=== PATIENT | male | born 1940 | race Caucasian/White ===

== ENCOUNTER 2017-09-13 08:05 | Observation (INO) | payer OTHER ==
--- NOTE | 2017-09-12 22:05 | GHP ---
[f rep st] PREOP HISTORY AND PHYSICAL DATE OF ADMISSION: 09/13/2017 DATE OF SURGERY: 09/13/2017. CHIEF COMPLAINT: Right ankle pain. HISTORY OF PRESENT ILLNESS: The patient is a 77-year-old with an involved history relative to his ankle. He underwent arthrodesis 2 years ago. This was complicated by postoperative infection requiring irrigation and debridement and IV antibiotics. He is reportedly "clear" of infection, but is having persistent pain. PAST MEDICAL HISTORY: Positive COPD, hypercholesterol, rheumatoid arthritis. MEDICATIONS: Hydroxychloroquine, losartan, montelukast, and trazodone. ALLERGIES: He lists no drug allergies. SOCIAL HISTORY: Negative for tobacco use. FAMILY HISTORY: Noncontributory. PHYSICAL EXAMINATION: GENERAL: He is alert and oriented x3. No acute distress. HEENT: Head is normocephalic. Pupils equal, round, reactive to light. Extraocular eye movements intact. NECK: Supple. No JVD or lymphadenopathy. CHEST: Clear to auscultation. HEART: Regular rate, rhythm. ABDOMEN: Soft, nontender, nondistended. No organomegaly. GENITORECTAL AND BREASTS: Deferred. EXTREMITIES: Reveals diffuse swelling in his right ankle with some focal tenderness. He has some gross motion through his arthrodesis site. ASSESSMENT: Nonunion right ankle arthrodesis. PLAN: The patient is scheduled to undergo arthrotomy debridements, placement of spacer with specimens sent to Pathology for definitive evaluation. Potential total ankle arthroplasty would be pending the results of the initial operation. /[id number]/MODL MTDD
[2017-09-13] MEDS ORDERED: LR 1,000 ML IV ONE (08:59)
[2017-09-13] MEDS ORDERED: BUPIVACAINE 0.25% 30 ML SDV ONE (09:39)
--- NOTE | 2017-09-13 10:40 | PDANEPAE ---
ANE History of Present Illness here for R ankle surgery ANE Past Medical History - Cardiovascular History Hx Hypertension: Yes Hx Arrhythmias: No Hx Chest Pain: No Hx Coronary Artery / Peripheral Vascular Disease: Yes Hx CHF / Valvular Disease: No Hx Palpitations: No Cardiovascular History Comment: cad. stent 2002 - Pulmonary History Hx COPD: Yes Hx Asthma/Reactive Airway Disease: No Hx Recent Upper Respiratory Infection: No Hx Oxygen in Use at Home: Yes O2 in Use at Home (L/minute): 4l at noc with cpap Hx Sleep Apnea: Yes Sleep Apnea Screening Result - Last Documented: Positive Pulmonary History Comment: alayna positive uses cpap- instructed pt to bring cpap to hospital. hx of pna 2010 - Neurologic History Hx Cerebrovascular Accident: No Hx Seizures: No Hx Dementia: No Neurologic History Comment: restless leg syndrome - Endocrine History Hx Diabetes: No - Renal History Hx Renal Disorders: Yes Renal History Comment: bph. nocturia. hx of turp - Liver History Hx Hepatic Disorders: No - Neurological & Psychiatric Hx Hx Neurological and Psychiatric Disorders: No - Cancer History Hx Cancer: Yes Cancer History Comment: skin - Congenital Disorder History Hx Congenital Disorders: No - GI History Hx Gastrointestinal Disorders: Yes Gastrointestinal History Comment: gerd has been off medicines this past year- controlling with diet - Other Health History Other Health History: back pain. bilateral hearing aides. glasses. RA. red spots to right ankle - Chronic Pain History Chronic Pain: Yes (right ankle, back pain) - Surgical History Prior Surgeries: right ankle fusion x2 2016 with post MRSA infection. right TKA. bilateral cataracts. removal of cyst in left elbow. turp. t&a. right shoulder removal of cuff. removal of throat polyps ANE Review of Systems Review of systems is: negative Review of Systems: - Exercise capacity Exercise capacity: <4 METS METS (RN): 3 METS ANE Patient History - Allergies Allergies/Adverse Reactions: No Known Allergies Allergy (Verified 08/31/17 11:02) - Home Medications Home medications: home medication list seen and reviewed Home Medications: Aspirin Bid 08/31/17 [Last Taken 09/10/17] Atorvastatin At Hs 08/31/17 [Last Taken 09/10/17] Fluticasone Prn 08/31/17 [Last Taken 09/10/17] Gabapentin Bid 08/31/17 [Last Taken 09/10/17] Herbals/Supplements -Info Only 08/31/17 [Last Taken 09/10/17] Humira D2bawtp 08/31/17 [Last Taken 08/14/17] Losartan In Am 08/31/17 [Last Taken 09/10/17] Meloxicam At Hs 08/31/17 [Last Taken Unknown] Montelukast Sodium At Hs 08/31/17 [Last Taken 09/10/17] Nebulizer Prn 08/31/17 [Last Taken 09/13/17] Paroxetine In Am 08/31/17 [Last Taken 09/10/17] Proventil Prn 08/31/17 [Last Taken 09/13/17] Ropinirole At Hs 08/31/17 [Last Taken 09/10/17] Symbicort Bid 08/31/17 [Last Taken 09/06/17] Tamsulosin At Hs 08/31/17 [Last Taken 09/10/17] Trazadone At Hs 08/31/17 [Last Taken 09/12/17] - NPO status NPO Status: no food or drink >8 hours NPO Since - Liquids (Date): 09/12/17 NPO Since - Liquids (Time): 22:00 NPO Since - Solids (Date): 09/12/17 NPO Since - Solids (Time): 22:00 - Smoking Hx Smoking Status: Former smoker - Family Anes Hx Family Hx Anesthesia Complications: none ANE Labs/Vital Signs - Vital Signs Vital Signs: reviewed preoperatively; see RN documention for details Blood Pressure: 147/72 Heart Rate: 75 Respiratory Rate: 18 O2 Sat (%): 87 Height: 170.18 cm Weight: 98.43 kg ANE Physical Exam - Airway Neck exam: FROM Mallampati Score: Class 1 Mouth exam: normal dental/mouth exam - Pulmonary Pulmonary: no respiratory distress - Cardiovascular Cardiovascular: regular rate and rhythym - ASA Status ASA Status: III ANE Anesthesia Plan Anesthesia Plan: GA w LMA Regional Anesthesia: popliteal SNB
[2017-09-13] MEDS ORDERED: ROPIVACAINE HCL 150 MG/30 ML INJ ONE (10:43)
[2017-09-13] MEDS ORDERED: fentaNYL 100 MCG/2 ML INJ ONE ×2 (10:45→12:53)
[2017-09-13] MEDS ORDERED: PROPOFOL/EMULSION 500 MG/50 ML BOTTLE IV ONE (11:05)
[2017-09-13] MEDS ORDERED: DEXAMETHASONE 4 MG/ML VIAL IVP PRN (11:29)
[2017-09-13] MEDS ORDERED: HYDROmorphONE/DILAUDID 1 MG/ML INJ IVP PRN (11:29)
[2017-09-13] MEDS ORDERED: NS 500 ML IV PRN (11:29)
[2017-09-13] MEDS ORDERED: LR 500 ML IV PRN (11:29)
[2017-09-13] MEDS ORDERED: ONDANSETRON 4 MG/2 ML VIAL IVP PRN ×2 (11:29→13:49)
[2017-09-13] MEDS ORDERED: ALBUTEROL 3 ML DEYVIAL IH PRN (11:29)
[2017-09-13] MEDS ORDERED: NALOXONE HCL 0.4 MG/ML INJ IVP PRN (11:29)
[2017-09-13] MEDS ORDERED: PHENYLEPHRINE HCL 100 MCG/ML SYR ONE ×2 (11:56→12:42)
[2017-09-13] MEDS ORDERED: ceFAZolin 1 GM VIAL ONE ×2 (12:36)
[2017-09-13] MEDS ORDERED: PROMETHAZINE HCL 25 MG/ML INJ IVP PRN (13:49)
--- NOTE | 2017-09-13 13:49 | POSTOPPROG ---
Post Op Note Date of Operation: 09/13/17 Surgeon: Lisandro Pierre Anesthesia: GET(General Endotracheal) Pre-op Diagnosis: Non union R ankle arthrodesis, retained hardware Post-op Diagnosis: same Procedure: R ankle arthrotomy/debridement, HWR, Placement PMMA/Abx spacer, tib- stone-natacha Inf/Abcess present in the surg proc area at time of surgery?: No
[2017-09-13] MEDS ORDERED: D5W 1/2 NS W/ 20 KCl/L 1,000 ML IV SCH (14:00)
[2017-09-13] MEDS ORDERED: ALBUTEROL 60 PUFFS/8 GM MDI IH ONE (14:03)
[2017-09-13] MEDS ORDERED: ALBUTEROL 3 ML DEYVIAL ONE (14:04)
[2017-09-13] MEDS: oxyCODONE IR 5 MG TAB PO PRN ×2 (16:48→19:50)
[2017-09-13] MEDS: ceFAZolin 2 GM/DEXTROSE 100 ML IV SCH (22:30)
[2017-09-14] MEDS ORDERED: ALBUTEROL 3 ML DEYVIAL IH PRN (03:15)
[2017-09-14] MEDS: ceFAZolin 2 GM/DEXTROSE 100 ML IV SCH (05:12)
[2017-09-14] MEDS: oxyCODONE IR 5 MG TAB PO PRN ×2 (05:12→10:39)
--- NOTE | 2017-09-14 06:11 | SOAPPROG ---
SOAP Progress Note Assessment/Plan: Assessment: S/P R ankle I&D Pain tolerable (block working) Jodee po + U/O Dressing intact, no D/C Toes with good cap refill Plan: OOB D/C home today 09/14/17 06:09 Objective: Vital Signs Temp Pulse Resp BP Pulse Ox 36.6 C 74 15 151/67 H 94 09/14/17 03:54 09/14/17 04:02 09/14/17 04:02 09/14/17 03:54 09/14/17 04:02 Microbiology 09/13/17 12:40 Gram Stain - Final Other - Tissue 09/13/17 12:00 Gram Stain - Final Ankle - Tissue 09/13/17 12:00 Gram Stain - Final Ankle - Tissue 09/13/17 11:45 Gram Stain - Final Ankle - Eswab 09/13/17 11:45 Gram Stain - Final Ankle - Eswab 09/13/17 12:17 Gram Stain - Final Ankle - Tissue 09/13/17 11:45 Gram Stain - Final Leg - Tissue 09/13/17 11:45 Gram Stain - Final Ankle - Tissue 09/13/17 11:45 Mycobacterial Smear (SPENSER) - Final Ankle - Eswab Mycobacterial Culture - Final 09/13/17 11:45 Mycobacterial Smear (SPENSER) - Final Ankle - Eswab Mycobacterial Culture - Final 09/13/17 09/14/17 09/15/17 05:59 05:59 05:59 Intake Total 2650 Balance 2650 ICD10 Worksheet Patient Problems: Problems Problem Status Onset Arthritis of ankle, right Acute Arthritis of ankle, right Acute - ICD10 Problem Qualifiers (1) Arthritis of ankle, right (2) Arthritis of ankle, right
[2017-09-14] MEDS ORDERED: diphenhydrAMINE 25 MG CAP PO PRN (07:35)
[2017-09-14 08:20] VITALS: BP 120/57
--- NOTE | 2017-09-14 10:16 | ASMTLACE ---
LACE Length of stay for Answers: 1 day current admission Acuity / Level of Answers: No Care: Did the patient have an inpatient admission? Comorbidities - select Answers: Chronic pulmonary disease all that apply Coronary Artery Disease Other Notes: HTN; GERD # of Emergency department Answers: 0 visits in the last 6 months Score: 6 Date Signed: 09/14/2017 10:15 AM Electronically Signed By:CLAIR Sanchez
--- NOTE | 2017-09-14 16:53 | GOP ---
[f rep st] OPERATIVE REPORT DATE OF OPERATION: 09/13/2017 SURGEON: Lisandro Pierre MD ANESTHESIA: General, plus popliteal block performed by the anesthesiologist at my request for postop erative pain management. PREOPERATIVE DIAGNOSIS: 1. Nonunion right ankle arthrodesis. 2. Possible right ankle infection. 3. Retained hardware, right ankle. POSTOPERATIVE DIAGNOSIS: 1. Nonunion right ankle arthrodesis. 2. Possible right ankle infection. 3. Retained hardware, right ankle. PROCEDURE PERFORMED: 1. Right ankle arthrotomy and debridement, including subcutaneous tissue, ankle capsule, and bone. 2. Hardware removal, right ankle. 3. Insertion of poly methylmethacrylate spacer, right ankle. 4. Provisional tibial talocalcaneal stabilization. FINDINGS: ESTIMATED BLOOD LOSS: Minimal. INDICATIONS: Patient is a 77-year-old with involved history relative to his ankle. He underwent an attempted ankle arthrodesis, which was complicated by infection. He is having persistent pain. Clin ically and radiographically, he is noted to have a nonunion of his arthrodesis site. After a prolonged discussion with the patient regarding treatment options, he was very interested in pursuing a total ankle arthroplasty. He acknowledged the concern over persistent infection with this operation. It was not felt that a single stage total ankle would be a safe option, and that if this was to be considered as a potential treatment, staging this, a hardware removal and thorough debride ment with multiple cultures sent be an initial first step. If at that point in time, all signs of in fection were negative at a subsequent date at least 1 month later, patient could return for a total a nkle. If there were any signs of infection, ankle arthrodesis would be the only option. He acknowle dged he understood the potential risks of the operation, including, but not limited to bleeding, infe ction, neurovascular damage, loss of limb function, need for further surgery, and anesthetic risks. He gave consent for the operative procedure. DESCRIPTION OF PROCEDURE: The patient was brought to the operating room. IV antibiotics were not ad ministered. He was placed in a supine position where general anesthetic was administered. A tourniq uet was placed around his right calf, and his right lower leg was prepped and draped in standard ster ile fashion. After marking the incision and Darrius wrap exsanguination, tourniquet was inflated to 250. A portion of his previous anterior ankle incision was utilized for exposure. Skin and subcutaneous t issue were sharply incised. The extensor retinaculum was incised in line with the skin incision. Th e interval between the tibialis anterior and extensor hallucis longus was utilized for exposure. The ankle capsule was longitudinally incised. Samples of the ankle capsule were sent to microbiology fo r analysis. There were no overt signs of any infection. Attention was directed toward hardware removal. Under fluoroscopic guidance, the location of the med ial screw heads were identified. The previous medial incision was utilized for dissection down to th e medial aspect of the tibia. The screw heads were identified and the screws removed without difficu lty. The remaining screw was placed in a posterior to anterior direction. Finding this screw via po sterior approach would be very difficult. A bone wafer polisher was then placed in the tibiotalar joint ba sed on the nonunion, distraction was accomplished. A portion of the talar insertion of the screw was freed with a small rongeur and small chisel. Utilizing a needle rolloff truck driver and fine-tipped pliers, the screw was then "backed out" into the tibia and then pulled out through the ankle joint. All screws w ere sent to Microbiology to be swabbed for potential infection. The fibrous tissue within the joint was thoroughly debrided. Multiple specimens from the tibia and t alus, as well as the soft tissue within the joint were sent to Pathology and Microbiology. A poly me thylmethacrylate spacer with tobramycin was then placed in the tibiotalar joint. A fully threaded la rge caliber Schanz pins were then placed from the plantar aspect of the heel across the subtalar and ankle joints, with the ankle held in neutral position. Fluoroscopic views confirmed favorable pin pl acement. Attention was directed towards closure. The extensor retinaculum was closed with 2-0 Vicryl suture i n interrupted fashion, subcutaneous tissue closed with 3-0 Vicryl suture in interrupted fashion, and the skin closed with 3-0 nylon interrupted sutures. The wounds were dressed with sterile Adaptic, 4 x 4, Kerlix, and an Darrius wrap. He was placed in a fracture boot and taken to recovery room, extubated , in stable condition postoperatively. All sponge, needle, and instrument counts were reported as be ing correct. DRAINS: None. COMPLICATIONS: None. PLAN: The patient would be admitted for overnight observation. He will be allowed to be weightbeari ng on his operative extremity. Further surgery would be pending the results of his microbiology anal ysis. /[id number]/MODL
== END 2017-09-14 12:13 | disposition home or self-care (01) ==
LOC: FSGY 08:05 → F3N 13:47
PROVIDERS: ADMIT Orthopaedic Surgery Foot and Ankle Surgery; ATTEND Orthopaedic Surgery Foot and Ankle Surgery
PROC: 0QPG04Z Removal of Internal Fixation Device from Right Tibia, Open Approach (ICD-10-PCS; principal; 2017-09-13 10:45)
PROC: 0SBF0ZX Excision of Right Ankle Joint, Open Approach, Diagnostic (ICD-10-PCS; principal; 2017-09-13 10:45)
PROC: 0SHF08Z Insertion of Spacer into Right Ankle Joint, Open Approach (ICD-10-PCS; principal; 2017-09-13 10:45)
DX: M96.0 Pseudarthrosis after fusion or arthrodesis (principal)
CPT/HCPCS: 20680; 27620; 73700; 97161; C1713; G8978; G8979; G8980; J0690; J2370; J2704; J2795; J3010; J7613

== ENCOUNTER 2017-10-10 17:00 | Inpatient (IN) | payer OTHER ==
[2017-10-10] MEDS ORDERED: POLYMYXIN B SULFATE 500,000 UNIT/10 ML SYR IRR ONE (19:59)
--- NOTE | 2017-10-10 20:12 | PDHPUP ---
History & Physical Update H&P update statement: This history and physical update is based on an assessment of the patient which was completed after admission or registration (within 24 hours), but prior to the surgery/procedure. H&P update: H&P reviewed & patient examined, no change in patient's condition since H&P completed H&P changes: Patient recently developed redness and swelling in his right lower leg with drainage from the medial wound. P/E - Redness along the medial aspect of his right ankle. No D/C. Imp - recurrent R ankle infection. Plan I&D R Ankle. Removal/replacement PMMA spacer
[2017-10-10] MEDS ORDERED: LR 1,000 ML IV ONE (20:14)
[2017-10-10] MEDS ORDERED: fentaNYL 100 MCG/2 ML INJ ONE ×2 (20:28→21:46)
[2017-10-10] MEDS ORDERED: PROPOFOL 200 MG/20 ML VIAL ONE (20:29)
[2017-10-10] MEDS ORDERED: ceFAZolin 1 GM VIAL ONE ×2 (20:30)
[2017-10-10] MEDS ORDERED: RANITIDINE 50 MG/2 ML VIAL ONE (20:30)
--- NOTE | 2017-10-10 20:30 | PDANEPAE ---
ANE Past Medical History - Cardiovascular History Hx Hypertension: Yes Hx Arrhythmias: No Hx Chest Pain: No Hx Coronary Artery / Peripheral Vascular Disease: Yes Hx CHF / Valvular Disease: No Hx Palpitations: No Cardiovascular History Comment: cad. stent 2002 - Pulmonary History Hx COPD: Yes Hx Asthma/Reactive Airway Disease: No Hx Recent Upper Respiratory Infection: No Hx Oxygen in Use at Home: Yes Hx Sleep Apnea: Yes Pulmonary History Comment: alayna positive uses cpap- instructed pt to bring cpap to hospital. hx of pna 2010 - Neurologic History Hx Cerebrovascular Accident: No Hx Seizures: No Hx Dementia: No Neurologic History Comment: restless leg syndrome - Endocrine History Hx Diabetes: No Hypothyroid: No Hyperthyroid: No Obesity: yes, mild - Renal History Hx Renal Disorders: Yes Renal History Comment: bph. nocturia. hx of turp - Liver History Hx Hepatic Disorders: No - Neurological & Psychiatric Hx Hx Neurological and Psychiatric Disorders: No - Cancer History Hx Cancer: Yes Cancer History Comment: skin - Congenital Disorder History Hx Congenital Disorders: No - GI History GERD: mild Hx Gastrointestinal Disorders: Yes Gastrointestinal History Comment: gerd has been off medicines this past year- controlling with diet - Other Health History Other Health History: back pain. bilateral hearing aides. glasses. RA. red spots to right ankle - Chronic Pain History Chronic Pain: Yes (right ankle, back pain) - Surgical History Prior Surgeries: right ankle fusion x2 2016 with post MRSA infection. right TKA. bilateral cataracts. removal of cyst in left elbow. turp. t&a. right shoulder removal of cuff. removal of throat polyps ANE Review of Systems Review of Systems: - Exercise capacity METS (RN): 4 METS ANE Patient History - Allergies Allergies/Adverse Reactions: No Known Allergies Allergy (Verified 08/31/17 11:02) - Home Medications Home Medications: Adalimumab [Humira] 40 mg SC Q14D 09/13/17 [Last Taken 10/10/17] Albuterol [Proventil Inhaler HFA (*)] 1 - 2 puffs IH Q4H PRN 09/13/17 [Last Taken 10/10/17] Albuterol [Proventil Neb] 3 ml IH QID PRN 09/13/17 [Last Taken 10/10/17] Aspirin [Aspirin 81mg (*)] 81 mg PO BID 09/13/17 [Last Taken 10/10/17 81 mg] Atorvastatin Calcium [Lipitor 20 mg (*)] 10 mg PO DAILY 09/13/17 [Last Taken 20] Budesonide/Formoterol 160/4.5 [Symbicort 160-4.5 Mcg Inh (*)] 2 puffs IH BID [Last Taken 10/10/17] Fluticasone Nasal [Flonase Nasal [place]] 1 sprays NASAL BID PRN 09/13/17 [Last Taken 10/10/17 120] Gabapentin [Neurontin] 1,200 mg PO BID 09/13/17 [Last Taken 10/10/17 600] Losartan Potassium 100 mg PO DAILY 09/13/17 [Last Taken 10/10/17 100 mg] Meloxicam 15 mg PO HS 09/13/17 [Last Taken 10/10/17] Montelukast Sodium [Singulair 10 mg (*)] 10 mg PO HS 09/13/17 [Last Taken 10] PARoxetine HCL [Paxil 20mg (*)] 10 mg PO DAILY 09/13/17 [Last Taken 10/10/17 10] rOPINIRole HCL [Ropinirole HCl] 0.5 mg PO HS 09/13/17 [Last Taken 10/10/17 0.5] traZODone [traZODONE 100MG (*)] 100 mg PO HS 09/13/17 [Last Taken 10/09/17 100] - NPO status NPO Since - Liquids (Date): 10/10/17 NPO Since - Liquids (Time): 10:30 NPO Since - Solids (Date): 10/10/17 NPO Since - Solids (Time): 10:30 - Anes Hx Anes Hx: no prior problems - Smoking Hx Smoking Status: Former smoker Marijuana use: No - Alcohol Use Alcohol Use: Sober - Family Anes Hx Family Anes Hx: neg - N/A Family Hx Anesthesia Complications: none ANE Labs/Vital Signs - Vital Signs Blood Pressure: 136/62 Heart Rate: 80 Respiratory Rate: 18 O2 Sat (%): 92 Height: 170.18 cm Weight: 95.254 kg ANE Physical Exam - Airway Neck exam: decreased ROM Mallampati Score: Class 3 Mouth exam: dentures - Pulmonary Pulmonary: no respiratory distress, no rales or rhonchi, reduced air movement - Cardiovascular Cardiovascular: regular rate and rhythym, no murmur, rub, or gallop ANE Anesthesia Plan Anesthesia Plan: GA w LMA Total IV Anesthesia: No
[2017-10-10] MEDS ORDERED: LIDOCAINE 2% 5 ML SDV ONE (20:31)
[2017-10-10] MEDS ORDERED: PHENYLEPHRINE HCL 100 MCG/ML SYR ONE ×2 (20:46→21:13)
[2017-10-10] MEDS ORDERED: DEXAMETHASONE 4 MG/ML VIAL ONE (20:49)
[2017-10-10] MEDS ORDERED: oxyCODONE IR 5 MG TAB PO PRN (21:01)
[2017-10-10] MEDS ORDERED: LR 500 ML IV PRN (21:01)
[2017-10-10] MEDS ORDERED: PHENYLEPHRINE HCL 100 MCG/ML SYR IVP PRN (21:01)
[2017-10-10] MEDS ORDERED: NALOXONE HCL 0.4 MG/ML INJ IVP PRN ×2 (21:01→22:53)
[2017-10-10] MEDS ORDERED: fentaNYL 100 MCG/2 ML INJ IVP PRN (21:01)
[2017-10-10] MEDS ORDERED: ACETAMINOPHEN 500 MG TAB PO PRN (21:01)
[2017-10-10] MEDS ORDERED: HYDROCODONE/APAP 5/325 TAB PO PRN (21:01)
[2017-10-10] MEDS ORDERED: ONDANSETRON 4 MG/2 ML VIAL IVP PRN ×2 (21:01→22:46)
[2017-10-10] MEDS ORDERED: ALBUTEROL 3 ML DEYVIAL IH PRN (21:01)
[2017-10-10] MEDS: BUPIVACAINE 0.25% 30 ML SDV ONE (21:35)
[2017-10-10] MEDS ORDERED: KETOROLAC 30 MG/1 ML SDV ONE (22:04)
[2017-10-10] MEDS ORDERED: PROMETHAZINE HCL 25 MG/ML INJ IVP PRN (22:46)
[2017-10-10] MEDS ORDERED: TEMAZEPAM 15 MG CAP PO PRN (22:46)
--- NOTE | 2017-10-10 22:46 | POSTOPPROG ---
Post Op Note Date of Operation: 10/10/17 Surgeon: Lisandro Pierre Anesthesia: LMA Pre-op Diagnosis: R ankle infection, retained hardware Post-op Diagnosis: same Procedure: R ankle I&D, HWR, removal PMMA spacer, TTC fixation, insertion PMMA spacer Inf/Abcess present in the surg proc area at time of surgery?: Yes Depth: Deep Incisional (Fascial) EBL: Minimal Drains: Jorge Baldwin
--- NOTE | 2017-10-10 22:50 | POSTANESTH ---
Post Anesthetic Evaluation Cardiovascular Status: Normal, Stable Respiratory Status: Normal, Stable Level of Consciousness/Mental Status: Mildly Sleepy, Arousable Pain Control: Adequate, Prn Tx Ordered Nausea/Vomiting Control: Adequate, Prn Tx Ordered Complications Possibly Related to Anesthesia: None Noted
[2017-10-10] MEDS ORDERED: morphINE PCA 30 MG/30 ML PCA IV PRN (22:53)
[2017-10-10] MEDS ORDERED: D5W 1/2 NS W/ 20 KCl/L 1,000 ML IV SCH (23:00)
--- NOTE | 2017-10-10 23:35 | GOP ---
[f rep st] OPERATIVE REPORT DATE OF OPERATION: 10/10/2017 SURGEON: Lisandro Pierre MD ANESTHESIA: General. PREOPERATIVE DIAGNOSIS: 1. Right ankle infection. 2. Retained implants, right ankle. POSTOPERATIVE DIAGNOSIS: 1. Right ankle infection. 2. Retained implants, right ankle. PROCEDURE PERFORMED: 1. Right ankle irrigation and debridement, including skin, subcutaneous tissue, and bone. 2. Removal of Steinmann pins and poly methylmethacrylate, right ankle. 3. Tibiotalar calcaneal fixation. 4. Insertion of poly methylmethacrylate/antibiotic spacer. FINDINGS: SPECIMENS: Two cultures sent to Microbiology for evaluation. ESTIMATED BLOOD LOSS: Minimal.resolution DESCRIPTION OF PROCEDURE: Patient was brought to the operating room after IV antibiotics were admini stered. He was placed in a supine position where general anesthetic was administered. A tourniquet was placed on his right calf, and his right lower leg was prepped and draped in standard sterile fash ion. After Darrius wrap exsanguination, tourniquet was inflated to 250. Stab incisions were made over t he Steinmann pins to the plantar aspect of his heel. Dissection was carried down to the pins. Using a needle mechanic welder truck driver, the pins were backed up and then subsequently removed for the drill. The medial in cision which had the opening and draining was open. No drainage was seen. The previous screw hole w as directly underneath this area. The wound was copiously irrigated and curetted. The anterior ankl e incision was opened. Skin and subcutaneous tissue were sharply incised. Sharp dissection was pavon ied in the interval between the tibialis anterior and extensor hallucis longus, taking care to avoid damage to neurovascular bundle. No evidence of purulence was seen or nonviable tissue. The capsule was reflected medially and laterally. The poly methylmethacrylate spacer was removed. Tissue was cu retted. Cultures were obtained both medially and anteriorly. The anterior wound was then copiously irrigated utilizing cystoscopy tubing gravity flow. A poly methylmethacrylate/tobramycin spacer was then placed in the ankle, both to control space as well as for deliverance of antibiotic to the tissue. Two large caliber threads lined with pins were then placed through stab incisions of the [facility] across the calcaneus, talus, and ankle. Fluoroscopic views confirmed favorable placement. Attention was directed towards closure. The subcutaneous tissue was closed with 3-0 Vicryl suture in interrupted fashion. The skin was closed with 3-0 nylon interrupted sutures using a "spider stitch. " Prior to closure, a 10-Surinamese drain was placed. The wounds were dressed with sterile Adaptic, 4 x 4, and Kerlix. Patient was taken to the recovery room and extubated in stable condition postoperati vely. All sponge, needle, and instrument counts were reported as being correct. DRAINS: 10-[place]inamese Jorge-Baldwin. COMPLICATIONS: None. PLAN: Patient will be admitted for medical and antibiotic management. /[id number]/MODL
[2017-10-11] MEDS ORDERED: ceFAZolin 2 GM/DEXTROSE 100 ML IV SCH (06:00)
--- NOTE | 2017-10-11 06:44 | PDMN ---
Medical Necessity Medical necessity: [facility] IP only surgery; cpt 91988 R ankle arthroplasty w/I&D
[2017-10-11] MEDS ORDERED: ALBUTEROL 60 PUFFS/8 GM MDI IH PRN (09:35)
[2017-10-11] MEDS ORDERED: IPRATROPIUM/ALBUTEROL 3 ML DEYVIAL IH PRN (09:35)
[2017-10-11] MEDS ORDERED: SENNOSIDES/DOCUSATE SODIUM TAB PO PRN (09:35)
[2017-10-11] MEDS ORDERED: PARoxetine HCL 20 MG TAB PO SCH (09:45)
[2017-10-11 10:56] LABS: PLATELET COUNT 255 10^3/uL (150-400)
[2017-10-11] MEDS: ENOXAPARIN 40 MG/0.4 ML SYR SC SCH (11:22)
[2017-10-11] MEDS: VANCOMYCIN HCL/NORMAL SALINE 250 ML IV SCH ×2 (11:22→22:57)
[2017-10-11] MEDS: LOSARTAN POTASSIUM 50 MG TAB PO SCH (11:22)
[2017-10-11] MEDS: oxyCODONE IR 5 MG TAB PO PRN ×3 (12:15→20:55)
[2017-10-11] MEDS: PARoxetine HCL 10 MG TAB PO SCH (13:47)
[2017-10-11] MEDS: BUDESONIDE/FORMOTEROL 160/4.5 60 PUFFS/MDI IH SCH ×2 (14:01→20:50)
--- NOTE | 2017-10-11 15:02 | SOAPPROG ---
SOAP Progress Note Assessment/Plan: Assessment: R Ankle infection S/P I&D R ankle No pain Jodee diet + U/o RLE Dressing intact, No D/C Drain intact Toes with good cap refill Plan: Appreciate ID and IM input IV abx per ID 10/11/17 15:00 Objective: Vital Signs Temp Pulse Resp BP Pulse Ox 36.4 C 83 17 132/61 H 93 10/11/17 11:24 10/11/17 14:52 10/11/17 14:52 10/11/17 14:52 10/11/17 14:52 Microbiology 10/10/17 20:50 Gram Stain - Final Ankle - Eswab 10/10/17 20:50 Gram Stain - Final Ankle - Eswab Laboratory Results 10/11/17 09:30 10/11/17 08:57 10/10/17 10/11/17 10/12/17 05:59 05:59 05:59 Intake Total 1100 1017 Output Total 25 425 Balance 1073 592 ICD10 Worksheet Patient Problems: Problems Problem Status Onset Arthritis of ankle, right Acute Arthritis of ankle, right Acute MDRO (multiple drug resistant organisms) resistance Acute
--- NOTE | 2017-10-11 15:12 | ASMTCASEMG ---
Living Arrangements What is your living Answers: With Spouse arrangement? Who do you live with? Type Of Residence What kind of residence do Answers: House you live in? Discharge Plan Comments Coordination Status Comments Notes: Pt is a 77 y/o man admitted for swelling in his right lower leg w/ drainage from a medial wound. ID has been consulted. Pt is being followed by transitional care. Needs are TBD at this time. CM to follow. Plan: TBD Date Signed: 10/11/2017 03:12 PM Electronically Signed By:CLAIR Sanchez
--- NOTE | 2017-10-11 15:35 | GCON ---
[f rep st] CONSULTATION REFERRING PHYSICIAN: Lisandro Pierre MD REASON FOR CONSULTATION: Medical management. HISTORY OF PRESENT ILLNESS: The patient is a 77-year-old gentleman who was admitted by Dr. Pierre for a right ankle infection requiring irrigation and debridement. He also had removal of pins and a calcaneal fixation. He has tolerated the procedure well. He had hardware surgery approximately [address] Pierre. This was done in the [place] area. He started noticing that he was having increased redness and swelling, and was not in significant pain. The patient has had multiple surgeries to his right ankle area. He was originally seen at the [facility] on 10/09/2017, with worsening right ankle redness. Subsequently, was transferred to [facility] for further surgery. He has a significant past medical history of coronary artery disease, right knee replacements, and COPD with chronic hypoxemic respiratory failure. During my evaluation, he is not having any pain and appears to be quite comfortable. PAST MEDICAL HISTORY: 1. Rheumatoid arthritis. He usually gets Humira. His last dose was on July. He is followed by Dr. Araujo. 2. Coronary artery disease, status post stent placement in 2006. 3. COPD with chronic hypoxemic respiratory failure. He is on 2 L of oxygen at baseline. 4. Hard of hearing. Wears hearing aids. 5. Obstructive sleep apnea. Uses CPAP. 6. Asthma. 7. Gastroesophageal reflux disease. 8. Restless legs syndrome. 9. Hypertension. PAST SURGICAL HISTORY: 1. Right knee replacement and multiple ankle surgeries. 2. TURP. SOCIAL HISTORY: The patient lives at home with his . He has been for 57 years. He has 3 sons. He has a history of smoking. He quit 28 years ago. He said he started smoking at age 14 and smoked up to 3 packs a day. He quit drinking 22 years ago. At that time, he was an alcoholic. He quit drinking because it was ruining his marriage and his work life. 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 FAMILY HISTORY :Noncontributory. ALLERGIES: No allergies. HOME MEDICATIONS: Include Flomax 0.5 mg daily, multivitamin 1 tablet daily, magnesium oxide 400 mg p.o. q.h.s., DuoNeb 3 cc q.i.d. p.r.n., vitamin D 1000 units p.o. b.i.d., calcium carbonate 500 mg p.o. b.i.d., ropinirole 0.5 mg p.o. q.h.s., senna 1 tablet b.i.d. p.r.n., Coats 1 tablet q.4 hours p.r.n., gabapentin 1200 mg p.o. b.i.d., aspirin 81 mg b.i.d., Flonase 1 spray b.i.d., Symbicort 2 puffs b.i.d., Lipitor 10 mg p.o. q.h.s., albuterol inhaler 2-3 puffs t.i.d. p.r.n., meloxicam 7.5 mg daily, losartan 100 mg daily, trazodone 100 mg daily, Paxil 10 mg daily, and Singulair 10 mg daily. REVIEW OF SYSTEMS: A 10-point review of system was performed and it was negative other than pertinent positives in HPI and past medical history. PHYSICAL EXAMINATION: GENERAL: The patient is a 77-year-old male who appears to be in fair health. VITAL SIGNS: Blood pressure is 146/73, pulse 76, respiratory rate is 16, O2 saturation on 3 L are 94%, temperature is 36.5 Celsius. HEENT: Eyes: Pupils are equal, reactive. ENT: Normal ears. He is extremely hard of hearing. NECK: Trachea is midline. CARDIOVASCULAR: He is in a regular rate and rhythm. No murmurs, rubs, or gallops noted. He has 2+ left pedal pulses. Did not feel his right pulse due to being in a cast. CHEST : Lungs normal respiratory effort. Clear without wheezing, rales. Diminished bibasilar. ABDOMEN: Soft, nontender, round, and large. SKIN: No rashes, ulcers. MUSCULOSKELETAL: He moves his upper extremities with equal strength. I did not evaluate him ambulating. PSYCHIATRIC: He is alert, oriented, but he appears to have some memory loss, and at times had quite a bit of difficulty remembering and answering my questions. LABORATORY DATA: Data reviewed. CBC shows a white blood cell count 7.4, hemoglobin is 13.2, hematocrit 39.9, platelet count of 255. Chemistry: Sodium is 136, potassium 4.7, chloride of 100, CO2 of 24, BUN of 22, creatinine 0.9, glucose of 147. I reviewed the plan of care with Dr Foreman with the Infectious disease team. ASSESSMENT/PLAN: 1. Right ankle cellulitis, status post right ankle irrigation and debridement with hardware removal and fixation. He appears to be feeling quite comfortable. He has a history of methicillin-resistant Staphylococcus aureus. He will be on vancomycin. Dr. Foreman is here to see him. 2. Coronary artery disease. Will resume his aspirin when okay with surgery. He is on an ARB. He has no chest pain during my evaluation. 3. Chronic obstructive pulmonary disease with chronic hypoxemic respiratory failure. Will resume his inhalers. 4. Restless legs syndrome. Resume his home medication. 5. History of transurethral resection of the prostate in the past. Will resume his Flomax. 6. Deep venous thrombosis prophylaxis. High risk. Will place him on Lovenox. 7. Length of stay. He will require greater than a 2-midnight stay for further evaluation and monitoring. Thank you for this consultation. The hospitalist team will continue to follow the patient during his stay. /[id number]/MODL MTDD
[2017-10-11] MEDS: BUPIVACAINE 0.25% 30 ML SDV ONE (15:46)
--- NOTE | 2017-10-11 16:05 | GCON ---
[f rep st] CONSULTATION DATE OF CONSULTATION: 10/11/2017 PHYSICIAN REQUESTING CONSULTATION: Lisandro Pierre MD. REASON FOR CONSULTATION: Right ankle infection. HISTORY OF PRESENT ILLNESS: This is a 77-year-old male on with rheumatoid arthritis on chronic Humira last mid July 2017, who has had a complicated history related to his left ankle, which included arthrodesis approximately 2 years ago for which he received IV antibiotics from approximately September to January 2016. This was followed by oral amoxicillin suppression which was discontinued after bone biopsies were negative and subsequently Humira was resumed. Due to chronic ankle pain, the patient was seen by Dr. Pierre for evaluation for complete ankle replacement. First, due to presence of nonunion, 2-step procedure was planned, and patient underwent removal of hardware on 09/13, with path showing metallic screws fibro cartilaginous tissue, but no acute inflammation. Multiple cultures were obtained, which were all negative except for 1 specimen characterized as right ankle joint that grew rare Staphylococcus epidermidis. Cultures were held for 14 days. Approximately , the patient developed ankle drainage and presented to [facility] 2 days later, where wound cultures were obtained and subsequently grew PRELIMINARY: SA with concern for MRSA. The patient was transferred to [facility] for further debridement, which occurred on 10/10/2017, with exchange of hardware. Cultures from the OR Gram stain are negative, and cultures are pending. The patient denies any pain associated with his ankle today. No fevers, chills, night sweats. PAST MEDICAL HISTORY: 1. Rheumatoid arthritis on chronic Humira, but this has been held since July. 2. Coronary artery disease status post stent placement. 3. History of right knee replacement. 4. BPH with TURP. 5. COPD, but quit tobacco over 20 years ago. 6. Obstructive sleep apnea, CPAP and supplemental oxygen at night. 7. Gastroesophageal reflux disease. 8. Restless leg syndrome. 9. Hypertension. 10. Insomnia. 11. Streptococcal infection right ankle in 2016 as per HPI following left ankle arthrodesis. ALLERGIES: NO KNOWN DRUG ALLERGIES. SOCIAL HISTORY: He lives with his . He has 3 sons, 1 is incarcerated. 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 Tobacco use, quit 20 years ago. He has been to his 57 years. FAMILY HISTORY: Coronary artery disease with his father dying at age 56 of coronary artery disease. Mother of old age. Brother at 35, [place]. No history of immunologic deficiencies. REVIEW OF SYSTEMS: A complete 10-point review of systems was performed and is negative except as mentioned in the HPI. PHYSICAL EXAM: BP 132/61, HR 83, RR 17, saturation 93% on 3 L. He has been afebrile throughout his hospital course. T-max is 36.8. GENERAL: This is a pleasant, cheerful, conversational male in no acute distress. HEENT: No conjunctival hemorrhage. No jaundice. NECK: Was supple. CARDIOVASCULAR: Regular rate no murmurs. CHEST: Clear to auscultation bilaterally with decreased breath sounds throughout and a barrel shaped chest. ABDOMEN: Obese, soft, nontender. No masses were palpated. Liver and spleen were nonpalpable. EXTREMITIES: Dressing was in place of the right lower extremity postoperatively with a HAYDEE drain with minimal fluid in the drain. NEUROLOGICAL: The patient had a difficult time with referencing his past medical history. SKIN: No rashes. LABORATORY: White count 7.4, hematocrit 39, platelets 255, 80% neutrophils, 11 % lymphocytes. Creatinine 0.9. CRP less than 5. Creatinine clearance is in the 70s. Imaging: None available to me. ASSESSMENT AND PLAN: This is a 77-year-old male who was undergoing a two-step process for a left ankle replacement. Course complicated by cellulitis of the ankle, query existing infection at time of surgery, which was somehow missed by initial sampling. Interestingly, past infection was group B strep. Current preliminary data reports MRSA at the outside hospital. 1. Obtain micro results from outside hospital, but in the meantime, would start vancomycin 1 g IV q.12 based on weight of 95 kg and creatinine clearance. 2. Monitor vancomycin levels and creatinine closely. The patient may need daptomycin as an outpatient for transfer back to [place] and ongoing IV antibiotic therapy. In the records Dr. Bernabe was referenced [phone] for ongoing antibiotic therapy at time of transfer. At this point, we will await additional micro data before transfer back. This was discussed. 3. Contact precautions until more info Time was 90 minutes. Greater than 50% of time spent education and counseling of the patient, his , and review of outside records, as well as coordination of care with Bhavani Parsons and Dr. Pierre. /[id number]/MODL MTDD
[2017-10-11] MEDS: ATORVASTATIN CALCIUM 20 MG TAB PO SCH (20:48)
[2017-10-11] MEDS: MONTELUKAST SODIUM 10 MG TAB PO SCH (20:53)
[2017-10-11] MEDS: CALCIUM CARBONATE 500 MG TAB PO SCH (20:53)
[2017-10-11] MEDS: MAGNESIUM OXIDE 400 MG TAB PO SCH (20:53)
[2017-10-11] MEDS: CHOLECALCIFEROL VIT D3 1,000 UNITS TAB PO SCH (20:53)
[2017-10-11] MEDS: GABAPENTIN 400 MG CAP PO SCH (20:53)
[2017-10-11] MEDS: traZODone 100 MG TAB PO SCH (20:55)
[2017-10-11] MEDS: FLUTICASONE NASAL 120 SPRAYS/16 GM MDI NS PRN (20:57)
--- NOTE | 2017-10-12 06:16 | SOAPPROG ---
SOAP Progress Note Assessment/Plan: Assessment: R Ankle infection S/P I&D R ankle No pain Jodee diet + U/o RLE Dressing intact, No D/C Drain intact Toes with good cap refill Plan: Appreciate ID and IM input IV abx per ID 10/11/17 15:00 10/12/17 06:14 Minimal pain Jodee po Drain D/Guillermo Moderate drainage (sang) on dressing. Dressing changed Erythema resolved IV abx and D/C timing per ID Objective: Vital Signs Temp Pulse Resp BP Pulse Ox 36.9 C 70 18 141/95 H 97 10/12/17 04:00 10/12/17 04:00 10/12/17 04:00 10/12/17 04:00 10/12/17 04:00 Microbiology 10/10/17 20:50 Gram Stain - Final Ankle - Eswab 10/10/17 20:50 Gram Stain - Final Ankle - Eswab Laboratory Results 10/11/17 09:30 10/11/17 08:57 10/11/17 10/12/17 10/13/17 05:59 05:59 05:59 Intake Total 1100 1217 Output Total 94 2506 Balance 1075 -1059 ICD10 Worksheet Patient Problems: Problems Problem Status Onset Arthritis of ankle, right Acute Arthritis of ankle, right Acute MDRO (multiple drug resistant organisms) resistance Acute
[2017-10-12] MEDS: TAMSULOSIN HCL 0.4 MG CAP PO SCH (08:03)
[2017-10-12] MEDS: ENOXAPARIN 40 MG/0.4 ML SYR SC SCH (08:03)
[2017-10-12] MEDS: LOSARTAN POTASSIUM 50 MG TAB PO SCH (08:03)
[2017-10-12] MEDS: PARoxetine HCL 10 MG TAB PO SCH (08:03)
[2017-10-12] MEDS: CALCIUM CARBONATE 500 MG TAB PO SCH ×2 (08:04→20:26)
[2017-10-12] MEDS: GABAPENTIN 400 MG CAP PO SCH ×2 (08:04→20:27)
[2017-10-12] MEDS: CHOLECALCIFEROL VIT D3 1,000 UNITS TAB PO SCH ×2 (08:04→20:26)
[2017-10-12] MEDS: OXYCODONE/APAP 5/325 TAB PO PRN ×3 (08:04→20:28)
--- NOTE | 2017-10-12 10:37 | HOSPPROG ---
Hospitalist Progress Note Assessment/Plan: * Right ankle infection s/p I&D and hardware removal -MRSA - IV Vanco * RA -Humira on hold * COPD - 2L baseline - but sounds like only wears it intermittently -Symbicort * JOHN -CPAP intolerant * Obesity BMI 32 * CAD/stent -restart ASA when okay with surgery Subjective: No complaints. Objective: Vital Signs Temp Pulse Resp BP Pulse Ox 37.1 C 65 16 141/95 H 95 10/12/17 08:00 10/12/17 08:00 10/12/17 08:00 10/12/17 08:03 10/12/17 08:00 Microbiology 10/10/17 20:50 Gram Stain - Final Ankle - Eswab 10/10/17 20:50 Gram Stain - Final Ankle - Eswab Laboratory Results 10/11/17 09:30 10/11/17 08:57 10/11/17 10/12/17 10/13/17 05:59 05:59 05:59 Intake Total 1100 1217 Output Total 25 9677 540 Balance 1075 -1058 -540 Old chart reviewed regarding hospital course - Physical Exam Constitutional: no apparent distress, appears nourished, not in pain Cardiovascular: regular rate and rhythym, no murmur, rub, or gallop Respiratory: no respiratory distress, no rales or rhonchi, clear to auscultation Gastrointestinal: normoactive bowel sounds, soft, non-tender abdomen, no palpable masses Skin: no rashes or abrasions, no fluctuance, no induration Neurologic: AAOx3, sensation intact bilaterally Psychiatric: interacting appropriately, not anxious, not encephalopathic, thought process linear ICD10 Worksheet Patient Problems: Problems Problem Status Onset Arthritis of ankle, right Acute Arthritis of ankle, right Acute MDRO (multiple drug resistant organisms) resistance Acute
[2017-10-12] MEDS: BUDESONIDE/FORMOTEROL 160/4.5 60 PUFFS/MDI IH SCH ×2 (11:49→20:23)
[2017-10-12] MEDS: VANCOMYCIN HCL/NORMAL SALINE 250 ML IV SCH (12:28)
--- NOTE | 2017-10-12 16:51 | ASMTCMCOM ---
CM Note CM Note Notes: Pt may need IV antibiotics at d/c, reports he has had IV antibiotics at home in [place], [place] he could not remember infusion company name and will ask his . Pt home address is [address] [place] [address]. Pt PCP is Jenae Saini at [facility] [phone]. CM will follow. Date Signed: 10/12/2017 04:50 PM Electronically Signed By:SUSAN Rodriguez
--- NOTE | 2017-10-12 17:58 | PCMIDPN ---
Assessment/Plan: Assessment/Plan: * Postoperative right ankle infection status post debridement and removal of pin /spacer with tibiotalar calcaneal fixation and reimplantation of spacer: Cultures now showing growth of Staphylococcus aureus and group B Streptococcus ( group B Streptococcus was isolated with prior infection). Cultures from outside facility reported to show growth of MRSA. Given presence of growth on operative specimens, will need treatment with 6 weeks of IV antibiotic therapy. If patient is going to return to [place], may need to consider transition to daptomycin for ease of administration. Will obtain repeat basic metabolic profile today on vancomycin and vancomycin level before dose tomorrow a.m.. Clinical findings and plan discussed with patient this afternoon. 10/12/17 17:54 Subjective: Patient without specific complaints other than mild ankle discomfort. Objective: Vital Signs Temp Pulse Resp BP Pulse Ox 36.4 C 65 15 115/59 L 98 10/12/17 16:00 10/12/17 16:00 10/12/17 16:00 10/12/17 16:00 10/12/17 16:00 Microbiology 10/10/17 20:50 Gram Stain - Final Ankle - Eswab 10/10/17 20:50 Gram Stain - Final Ankle - Eswab Laboratory Results 10/11/17 09:30 10/11/17 08:57 10/11/17 10/12/17 10/13/17 05:59 05:59 05:59 Intake Total 1100 1217 1270 Output Total 25 2275 990 Balance 1075 -1058 280 Vancomycin # 2 Operative cultures with growth of Staphylococcus aureus and group B Streptococcus - Physical Exam General Appearance: alert, no apparent distress EENT: No scleral icterus, No conjunctival petechiae Respiratory: lungs clear, No respiratory distress Cardiac/Chest: regular rate, rhythm, systolic murmur (2/6 left upper sternal border) Extremities: inflammation (Right foot dressed postoperatively; 2+ lower extremity edema present) Abdomen: non-tender, No distended Skin: No embolic lesions - Time Spent With Patient Time Spent with Patient: greater than 25 minutes Time Spent with Patient: Greater than 25 minutes spent on this patients care, greater than 50% of time spent counseling, educating, and coordinating care regarding the above mentioned plan. ICD10 Worksheet Patient Problems: Problems Problem Status Onset Arthritis of ankle, right Acute Arthritis of ankle, right Acute MDRO (multiple drug resistant organisms) resistance Acute
[2017-10-12] MEDS: ATORVASTATIN CALCIUM 20 MG TAB PO SCH (20:20)
[2017-10-12] MEDS: FLUTICASONE NASAL 120 SPRAYS/16 GM MDI NS PRN (20:25)
[2017-10-12] MEDS: MAGNESIUM OXIDE 400 MG TAB PO SCH (20:27)
[2017-10-12] MEDS: MONTELUKAST SODIUM 10 MG TAB PO SCH (20:27)
[2017-10-12] MEDS: traZODone 100 MG TAB PO SCH (20:28)
[2017-10-13] MEDS: VANCOMYCIN HCL/NORMAL SALINE 250 ML IV SCH (00:01)
--- NOTE | 2017-10-13 05:56 | SOAPPROG ---
SOAP Progress Note Assessment/Plan: Assessment: R Ankle infection S/P I&D R ankle No pain Jodee diet + U/o RLE Dressing intact, No D/C Drain intact Toes with good cap refill Plan: Appreciate ID and IM input IV abx per ID 10/11/17 15:00 10/12/17 06:14 Minimal pain Jodee po Drain D/Guillermo Moderate drainage (sang) on dressing. Dressing changed Erythema resolved IV abx and D/C timing per ID 10/13/17 05:54 ID/IM notes seen and appreciated Pain tolerable RLE Dressing intact, no new D/C Distal NV unchanged D/C pending ID and home abx OK from Ortho standpoint when cleared per ID and home abx arranged. Objective: Vital Signs Temp Pulse Resp BP Pulse Ox 36.6 C 64 17 138/90 H 94 10/13/17 00:00 10/13/17 00:00 10/13/17 00:00 10/13/17 00:00 10/13/17 00:00 Microbiology 10/10/17 20:50 Gram Stain - Final Ankle - Eswab 10/10/17 20:50 Gram Stain - Final Ankle - Eswab Laboratory Results 10/11/17 09:30 10/11/17 10/12/17 10/13/17 05:59 05:59 05:59 Intake Total 1100 1217 1770 Output Total 69 9202 6282 Balance 1075 -1051 430 ICD10 Worksheet Patient Problems: Problems Problem Status Onset Arthritis of ankle, right Acute Arthritis of ankle, right Acute MDRO (multiple drug resistant organisms) resistance Acute
[2017-10-13] MEDS: BUDESONIDE/FORMOTEROL 160/4.5 60 PUFFS/MDI IH SCH ×2 (08:39→21:01)
[2017-10-13] MEDS: ENOXAPARIN 40 MG/0.4 ML SYR SC SCH (09:48)
[2017-10-13] MEDS: LOSARTAN POTASSIUM 50 MG TAB PO SCH (09:50)
[2017-10-13] MEDS: CHOLECALCIFEROL VIT D3 1,000 UNITS TAB PO SCH ×2 (09:50→21:19)
[2017-10-13] MEDS: TAMSULOSIN HCL 0.4 MG CAP PO SCH (09:50)
[2017-10-13] MEDS: PARoxetine HCL 10 MG TAB PO SCH (09:50)
[2017-10-13] MEDS: CALCIUM CARBONATE 500 MG TAB PO SCH ×2 (09:50→21:19)
[2017-10-13] MEDS: GABAPENTIN 400 MG CAP PO SCH ×2 (09:50→21:18)
[2017-10-13] MEDS ORDERED: ALTEPLASE 2 MG VIAL IVP PRN (12:39)
--- NOTE | 2017-10-13 13:09 | PCMIDPN ---
Assessment/Plan: MSSA & GBS R ankle deep space infection/joint/ possible OM s/p debridement and spacer and pin placement. Interestingly interesting, cultures from initial surgery 09/13/2017 were all negative. 1 positive culture for Staph epi likely contaminant --6 weeks IV antibiotics, needs once daily medication, planning ceftriaxone 2gm IV daily --picc line placement --coordination of care with [place] --planned removal of spacer and pins at end of IV antibiotic therapy and fusion of ankle --dc vancomycin, start ceftriaxone # Increased Cr: dc vancomycin today --follow serial Cr Dr Bolden in [place] appt 325pm on 10/17/17 [facility] ID Medications vancomycin 1gm IV q12, #2 Subjective: patient feeling well without c/o wants to leave to return to [place] as soon as possible Objective: Vital Signs Temp Pulse Resp BP Pulse Ox 36.8 C 84 12 159/73 H 92 10/13/17 08:00 10/13/17 08:46 10/13/17 08:46 10/13/17 09:50 10/13/17 08:46 Microbiology 10/10/17 20:50 Gram Stain - Final Ankle - Eswab 10/10/17 20:50 Gram Stain - Final Ankle - Eswab Laboratory Results 10/11/17 09:30 10/13/17 04:52 10/12/17 10/13/17 10/14/17 05:59 05:59 05:59 Intake Total 1217 1770 450 Output Total 2275 1990 700 Balance -6784 -220 -488 Gen: pleasant and talkative HEENT: no oral lesions Neck supple CV: RRR Chest: barrel chest, decreased bs throughout Abd: obese soft NT R ankle 2 incisions ant foot without significant drainage, stitches still in place, incision sole of foot at heal c/d/i, no erythema - Time Spent With Patient Time Spent with Patient: greater than 35 minutes Time Spent with Patient: Greater than 35 minutes spent on this patients care, greater than 50% of time spent counseling, educating, and coordinating care regarding the above mentioned plan. ICD10 Worksheet Patient Problems: Problems Problem Status Onset Arthritis of ankle, right Acute Arthritis of ankle, right Acute MDRO (multiple drug resistant organisms) resistance Acute
--- NOTE | 2017-10-13 13:59 | PDIAF ---
- Diagnosis Diagnosis: MSSA &GBS R septic arthritis & poss OM Code Status: Full Code - Medication Management Discharge Medications: Medications to Continue on Transfer Albuterol [Proventil Inhaler HFA (*)] 2 - 3 puffs IH TID PRN 09/13/17 [Last Taken Unknown] Aspirin [Aspirin 81mg (*)] 81 mg PO BID 09/13/17 [Last Taken 09/10/17] Atorvastatin Calcium [Lipitor 20 mg (*)] 10 mg PO HS 09/13/17 [Last Taken ] Budesonide/Formoterol 160/4.5 [Symbicort 160-4.5 Mcg Inh (*)] 2 puffs IH BID [Last Taken 09/06/17] Fluticasone Nasal [Flonase Nasal [place]] 1 sprays NASAL BID PRN 09/13/17 [Last Taken Unknown] Losartan Potassium 100 mg PO DAILY 09/13/17 [Last Taken 09/10/17] Meloxicam 7.5 mg PO DAILY 09/13/17 [Last Taken Unknown] Montelukast Sodium [Singulair 10 mg (*)] 10 mg PO HS 09/13/17 [Last Taken ] PARoxetine HCL [Paxil 20mg (*)] 10 mg PO DAILY 09/13/17 [Last Taken 09/10/17] rOPINIRole HCL [Ropinirole HCl] 0.5 mg PO HS 09/13/17 [Last Taken 09/10/17] traZODone [traZODONE 100MG (*)] 100 mg PO HS 09/13/17 [Last Taken 09/12/17] Calcium Carbonate [Oyster Shell Calcium 500 mg (*)] 500 mg PO BID 10/11/17 [ Last Taken Unknown] Cholecalciferol Vit D3 [Vitamin D3 (*)] 1,000 units PO BID 10/11/17 [Last Taken Unknown] Gabapentin [Neurontin 400 MG (*)] 1,200 mg PO BID 10/11/17 [Last Taken Unknown] Herbals/Supplements -Info Only 1 ea PO DAILY 10/11/17 [Last Taken Unknown] Hydrocodone/Acetaminophen [[place] 5/325 (*)] 1 each PO Q4 PRN 10/11/17 [Last Taken Unknown] Ipratropium/Albuterol [Duoneb (*)] 3 ml IH QID PRN 10/11/17 [Last Taken Unknown] Magnesium Oxide [Magnesium Oxide 400 mg (*)] 400 mg PO HS 10/11/17 [Last Taken Unknown] Multivitamins [Multivitamin (*)] 1 each PO DAILY 10/11/17 [Last Taken Unknown] Sennosides/Docusate Sodium [Senna-Docusate Sodium Tablet] 1 each PO BID PRN [Last Taken Unknown] Tamsulosin HCl [Flomax 0.4 MG (*)] 0.4 mg PO DAILY 10/11/17 [Last Taken Unknown] Jail Antibiotics: ceftriaxone 2gm IV daily Jail Antibiotic Stop Date: 11/21/17 Discharge Medications: Refer to the Discharge Home Medication list for PRN reason. PICC Care - Routine: Yes - Orders Services needed: Home Care, Registered Nurse Home Care Face to Face: I certify that this patient was under my care and that I had the required [id number] encounter meeting the encounter requirements on the discharge day. My findings support the fact that the patient is homebound as defined in Home Care Face to Face Continued: CMS Chapter 7 Medicare Benefits Manual 30.1.1 , The condition of the patient is such that there exists a normal inability to leave home and consequently, leaving home would require a considerable and taxing effort. Isolation Type: None Additional Instructions: Keep dressing clean, dry, intact Limited weight bearing in fracture boot Follow up (~ 2 wks) office will call patient to confirm date - Labs/Radiology CBC w/diff Date: 10/17/17 (weekly tuesday) CMP Date: 10/17/17 (weekly Tuesday) Call or Fax Lab and Imaging Results to: [facility] in [place] - Follow Up Care Current Providers and Referrals: LAUREL STRONG [Other]
--- NOTE | 2017-10-13 16:36 | HOSPPROG ---
Hospitalist Progress Note Assessment/Plan: * Right ankle joint infection s/p I&D with spacer -MSSA/GBS - IV ceftriaxone for 6 weeks * RA -Humira on hold * COPD - 2L baseline - but sounds like only wears it intermittently -Symbicort * JOHN -CPAP intolerant * Obesity BMI 32 * CAD/stent -restart ASA * ARF -IVF and recheck am -hold losartan Subjective: no new complaints Objective: Vital Signs Temp Pulse Resp BP Pulse Ox 36.4 C 75 17 136/55 H 90 L 10/13/17 16:00 10/13/17 16:00 10/13/17 16:00 10/13/17 16:00 10/13/17 16:00 Microbiology 10/10/17 20:50 Gram Stain - Final Ankle - Eswab 10/10/17 20:50 Gram Stain - Final Ankle - Eswab Laboratory Results 10/11/17 09:30 10/13/17 04:52 10/12/17 10/13/17 10/14/17 05:59 05:59 05:59 Intake Total 1217 1770 950 Output Total 2275 1990 1450 Balance -1058 220 500 - Physical Exam Constitutional: no apparent distress, appears nourished, not in pain Cardiovascular: regular rate and rhythym, no murmur, rub, or gallop Respiratory: no respiratory distress, no rales or rhonchi, clear to auscultation Gastrointestinal: normoactive bowel sounds, soft, non-tender abdomen, no palpable masses Skin: no rashes or abrasions, no fluctuance, no induration Neurologic: AAOx3, sensation intact bilaterally Psychiatric: interacting appropriately, not anxious, not encephalopathic, thought process linear ICD10 Worksheet Patient Problems: Problems Problem Status Onset Arthritis of ankle, right Acute Arthritis of ankle, right Acute MDRO (multiple drug resistant organisms) resistance Acute
[2017-10-13] MEDS ORDERED: NS 1,000 ML IV SCH (16:45)
--- NOTE | 2017-10-13 17:01 | ASMTCMCOM ---
CM Note CM Note Notes: Pt declines SNF d/c, wants to return home to [place] and get home IV antibiotics. Pt states he has been to a SNF in [place] and cannot recall the name. Pt has been to an infusion clinic in [place], could not recall the name. Referral sent to [facility] who services [place], [place]. [facility] [phone] will run pt benefits and assist with securing C. Pt does have secondary insurance to Medicare. By close of business no information from [facility] on pricing. CM to follow. Date Signed: 10/13/2017 05:01 PM Electronically Signed By:SUSAN Rodriguez
[2017-10-13] MEDS: ASPIRIN 81 MG CHEWABLE TAB PO SCH (21:17)
[2017-10-13] MEDS: ATORVASTATIN CALCIUM 20 MG TAB PO SCH (21:17)
[2017-10-13] MEDS: MAGNESIUM OXIDE 400 MG TAB PO SCH (21:19)
[2017-10-13] MEDS: MONTELUKAST SODIUM 10 MG TAB PO SCH (21:19)
[2017-10-13] MEDS: traZODone 100 MG TAB PO SCH (21:19)
[2017-10-13] MEDS ORDERED: MAGNESIUM HYDROXIDE 30 ML UDCUP PO PRN (22:35)
[2017-10-13] MEDS ORDERED: LACTULOSE 20 GM/30 ML UDCUP PO PRN (22:35)
[2017-10-13] MEDS ORDERED: POLYETHYLENE GLYCOL 3350 17 GM PKT PO PRN (22:35)
[2017-10-13] MEDS ORDERED: BISACODYL 10 MG SUPP PR PRN (22:35)
--- NOTE | 2017-10-14 06:22 | SOAPPROG ---
SOAP Progress Note Assessment/Plan: Assessment: R Ankle infection S/P I&D R ankle No pain Jodee diet + U/o RLE Dressing intact, No D/C Drain intact Toes with good cap refill Plan: Appreciate ID and IM input IV abx per ID 10/11/17 15:00 10/12/17 06:14 Minimal pain Jodee po Drain D/Guillermo Moderate drainage (sang) on dressing. Dressing changed Erythema resolved IV abx and D/C timing per ID 10/13/17 05:54 ID/IM notes seen and appreciated Pain tolerable RLE Dressing intact, no new D/C Distal NV unchanged D/C pending ID and home abx OK from Ortho standpoint when cleared per ID and home abx arranged. 10/14/17 06:22 Pain minimal wants to go home dressing intact No D/C NV Unchanged Will D/C home if home care arranged Objective: Vital Signs Temp Pulse Resp BP Pulse Ox 36.5 C 68 18 135/64 H 90 L 10/13/17 23:34 10/13/17 23:34 10/13/17 23:34 10/13/17 23:34 10/13/17 23:34 Microbiology 10/10/17 20:50 Gram Stain - Final Ankle - Eswab 10/10/17 20:50 Gram Stain - Final Ankle - Eswab Laboratory Results 10/11/17 09:30 10/14/17 05:20 10/13/17 10/14/17 10/15/17 05:59 05:59 05:59 Intake Total 7986 1250 Output Total 1989 6880 Balance -220 -1600 ICD10 Worksheet Patient Problems: Problems Problem Status Onset Arthritis of ankle, right Acute Arthritis of ankle, right Acute MDRO (multiple drug resistant organisms) resistance Acute
[2017-10-14 08:11] VITALS: BP 175/81
[2017-10-14] MEDS: ENOXAPARIN 40 MG/0.4 ML SYR SC SCH (08:30)
[2017-10-14] MEDS: CALCIUM CARBONATE 500 MG TAB PO SCH (08:31)
[2017-10-14] MEDS: TAMSULOSIN HCL 0.4 MG CAP PO SCH (08:31)
[2017-10-14] MEDS: PARoxetine HCL 10 MG TAB PO SCH (08:31)
[2017-10-14] MEDS: ASPIRIN 81 MG CHEWABLE TAB PO SCH (08:31)
[2017-10-14] MEDS: GABAPENTIN 400 MG CAP PO SCH (08:31)
[2017-10-14] MEDS: CHOLECALCIFEROL VIT D3 1,000 UNITS TAB PO SCH (08:31)
[2017-10-14] MEDS: FLUTICASONE NASAL 120 SPRAYS/16 GM MDI NS PRN (09:00)
[2017-10-14] MEDS: BUDESONIDE/FORMOTEROL 160/4.5 60 PUFFS/MDI IH SCH (09:00)
--- NOTE | 2017-10-14 09:14 | PCMIDPN ---
Assessment/Plan: # MSSA & GBS R ankle deep space infection/joint/ possible OM s/p debridement and spacer and pin placement. (Interestingly interesting, cultures from initial surgery 09/13/2017 were all negative except 1 positive culture for rare Staph epi - likely contaminant) --6 weeks IV antibiotics, needs once daily medication, planning ceftriaxone 2gm IV daily stop date 11/21/17 # Increased Cr: Cr improved 1.5 from 1.6. Ceftriaxone primarily liver metabolized. Labs we followed at ID group in [place] Dr Watt in [place] phone [phone] appt 325pm on 10/17/17 [facility] ID Medications ceftriaxone 2gm IV q24 #2 Subjective: Patient doing well anxious for discharge, plans on returning to [place] today Objective: Vital Signs Temp Pulse Resp BP Pulse Ox 36.4 C 78 16 175/81 H 98 10/14/17 08:00 10/14/17 08:00 10/14/17 08:00 10/14/17 08:00 10/14/17 08:00 Microbiology 10/10/17 20:50 Gram Stain - Final Ankle - Eswab 10/10/17 20:50 Gram Stain - Final Ankle - Eswab Laboratory Results 10/11/17 09:30 10/14/17 05:20 10/13/17 10/14/17 10/15/17 05:59 05:59 05:59 Intake Total 1770 1250 Output Total 1989 3883 189 Balance -220 -4249 -436 - Physical Exam General Appearance: alert, no apparent distress Respiratory: No accessory muscle use Extremities: other (Dressing right lower extremity left in place) Skin: normal color, warm/dry, No rash Neuro/Psych: alert, normal mood/affect - Line/s RUE PICC Lines: No drainage, No erythema - Time Spent With Patient Time Spent with Patient: greater than 25 minutes Time Spent with Patient: Greater than 25 minutes spent on this patients care, greater than 50% of time spent counseling, educating, and coordinating care regarding the above mentioned plan. ICD10 Worksheet Patient Problems: Problems Problem Status Onset Arthritis of ankle, right Acute Arthritis of ankle, right Acute MDRO (multiple drug resistant organisms) resistance Acute
--- NOTE | 2017-10-14 11:00 | PDIAF ---
- Diagnosis Diagnosis: MSSA &GBS R septic arthritis & poss OM Code Status: Full Code - Medication Management Discharge Medications: Medications to Continue on Transfer Albuterol [Proventil Inhaler HFA (*)] 2 - 3 puffs IH TID PRN 09/13/17 [Last Taken Unknown] Aspirin [Aspirin 81mg (*)] 81 mg PO BID 09/13/17 [Last Taken 09/10/17] Atorvastatin Calcium [Lipitor 20 mg (*)] 10 mg PO HS 09/13/17 [Last Taken ] Budesonide/Formoterol 160/4.5 [Symbicort 160-4.5 Mcg Inh (*)] 2 puffs IH BID [Last Taken 09/06/17] Fluticasone Nasal [Flonase Nasal [place]] 1 sprays NASAL BID PRN 09/13/17 [Last Taken Unknown] Meloxicam 7.5 mg PO DAILY 09/13/17 [Last Taken Unknown] Montelukast Sodium [Singulair 10 mg (*)] 10 mg PO HS 09/13/17 [Last Taken ] PARoxetine HCL [Paxil 20mg (*)] 10 mg PO DAILY 09/13/17 [Last Taken 09/10/17] rOPINIRole HCL [Ropinirole HCl] 0.5 mg PO HS 09/13/17 [Last Taken 09/10/17] traZODone [traZODONE 100MG (*)] 100 mg PO HS 09/13/17 [Last Taken 09/12/17] Calcium Carbonate [Oyster Shell Calcium 500 mg (*)] 500 mg PO BID 10/11/17 [ Last Taken Unknown] Cholecalciferol Vit D3 [Vitamin D3 (*)] 1,000 units PO BID 10/11/17 [Last Taken Unknown] Gabapentin [Neurontin 400 MG (*)] 1,200 mg PO BID 10/11/17 [Last Taken Unknown] Herbals/Supplements -Info Only 1 ea PO DAILY 10/11/17 [Last Taken Unknown] Hydrocodone/Acetaminophen [[place] 5/325 (*)] 1 each PO Q4 PRN 10/11/17 [Last Taken Unknown] Ipratropium/Albuterol [Duoneb (*)] 3 ml IH QID PRN 10/11/17 [Last Taken Unknown] Magnesium Oxide [Magnesium Oxide 400 mg (*)] 400 mg PO HS 10/11/17 [Last Taken Unknown] Multivitamins [Multivitamin (*)] 1 each PO DAILY 10/11/17 [Last Taken Unknown] Sennosides/Docusate Sodium [Senna-Docusate Sodium Tablet] 1 each PO BID PRN [Last Taken Unknown] Tamsulosin HCl [Flomax 0.4 MG (*)] 0.4 mg PO DAILY 10/11/17 [Last Taken Unknown] Assisted Antibiotics: ceftriaxone 2gm IV daily Network Technical Analyst Antibiotic Stop Date: 11/21/17 Discharge Medications: Refer to the Discharge Home Medication list for PRN reason. PICC Care - Routine: Yes - Orders Services needed: Home Care, Registered Nurse, Physical Therapy, Occupational Therapy Home Care Face to Face: I certify that this patient was under my care and that I had the required [id number] encounter meeting the encounter requirements on the discharge day. My findings support the fact that the patient is homebound as defined in Home Care Face to Face Continued: CMS Chapter 7 Medicare Benefits Manual 30.1.1 , The condition of the patient is such that there exists a normal inability to leave home and consequently, leaving home would require a considerable and taxing effort. Isolation Type: None Diet Recommendation: no restrictions on diet Additional Instructions: Hold Losartan until kidney function has returned to normal Keep dressing clean, dry, intact Limited weight bearing in fracture boot Follow up (~ 2 wks) office will call patient to confirm date We have arranged an appointment for you with Dr Watt in [place], Your appointment time is 3:25pm on 10/17/17 [facility] ID Please call and set up for infusion. If greater than 3 loose stools, severe abdominal cramping or fever please call our office for evaluation of potential complication of all antibiotics, called C. difficile-associated diarrhea . - Labs/Radiology CBC w/diff Date: 10/17/17 (weekly tuesday) CMP Date: 10/17/17 (weekly Tuesday) Call or Fax Lab and Imaging Results to: [facility] in [place] - Follow Up Care Current Providers and Referrals: LAUREL STRONG [Other]
--- NOTE | 2017-10-14 16:23 | ASMTLACE ---
LACE Length of stay for Answers: 4-6 days current admission Acuity / Level of Answers: Yes Care: Did the patient have an inpatient admission? Comorbidities - select Answers: Chronic pulmonary disease all that apply Coronary Artery Disease Opioid dependence / Chronic pain Other Notes: HTN # of Emergency department Answers: 0 visits in the last 6 months Score: 16 Date Signed: 10/14/2017 04:22 PM Electronically Signed By:SUSAN Rodriguez
--- NOTE | 2017-10-14 16:27 | ASDISCHSUM ---
Discharge Information Plan Status:IV ABX/Infusion Medically Cleared to Leave: Discharge Date:10/14/2017 12:15 PM CM D/C Disposition: ADT D/C Disposition:Home, Routine, Self-Care Projected Discharge Date:10/14/2017 11:00 AM Transportation at D/C:Family Discharge Delay Reason: Follow-Up Date:10/14/2017 11:00 AM Discharge Slot: Final Diagnosis: Placement Information Referral Type:Home Infusion Referral ID:[id number] Provider Name: Address 1: Phone Number: Address 2: Fax Number: City: [facility] Factors: State: Patient Contact Information Contact Name:AYANNA Relationship: Address:[address] Work Phone: Dariana:[facility] Phone: [facility] Code:[place] [id number] Email: Financial Information Financial Class:Medicare Primary Plan Desc:MEDICARE INPATIENT Primary Plan Number:[id number] Secondary Plan Desc:SAUL Secondary Plan Number:[id number] Assessment Information LACE LACE Length of stay for Answers: 4-6 days current admission Acuity / Level of Answers: Yes Care: Did the patient have an inpatient admission? Comorbidities - select Answers: Chronic pulmonary disease all that apply Coronary Artery Disease Opioid dependence / Chronic pain Other Notes: HTN # of Emergency department Answers: 0 visits in the last 6 months Score: 16 Date Signed: 10/14/2017 04:22 PM Electronically Signed By:SUSAN Rodriguez [facility] Initial CM Assessment Living Arrangements What is your living Answers: With Spouse arrangement? Who do you live with? Type Of Residence What kind of residence do Answers: House you live in? Discharge Plan Comments Coordination Status Comments Notes: Pt is a 77 y/o man admitted for swelling in his right lower leg w/ drainage from a medial wound. ID has been consulted. Pt is being followed by transitional care. Needs are TBD at this time. CM to follow. Plan: TBD Date Signed: 10/11/2017 03:12 PM Electronically Signed By:CLAIR Sanchez [facility] CM Progress Note CM Note CM Note Notes: Pt may need IV antibiotics at d/c, reports he has had IV antibiotics at home in [place], [place] he could not remember infusion company name and will ask his . Pt home address is [address] [place] [address]. Pt PCP is Jenae Saini at [facility] [phone]. CM will follow. Date Signed: 10/12/2017 04:50 PM Electronically Signed By:SUSAN Rodriguez [facility] CM Progress Note CM Note CM Note Notes: Pt declines SNF d/c, wants to return home to [place] and get home IV antibiotics. Pt states he has been to a SNF in [place] and cannot recall the name. Pt has been to an infusion clinic in [place], could not recall the name. Referral sent to [facility] who services [place], [place]. Gil [phone] will run pt benefits and assist with securing [facility]. Pt does have secondary insurance to Medicare. By close of business no information from [facility] on pricing. CM to follow. Date Signed: 10/13/2017 05:01 PM Electronically Signed By:SUSAN Rodriguez [facility] CM Progress Note CM Note CM Note Notes: Pt medically stable for d/c with outpatient infusion at [facility] in [facility]. [place] priced pt home IV antibiotics and with this information pt decided on outpatient infusion. Pt called and scheduled Tuesday/Tuesday outpatient appointments prior to leaving [facility]. [facility] ID Dr. Foreman coordinated care with [facility], pt scheduled to see Dr. Watt on Tuesday. Orders and clinicals faxed to the Dr. Watt's office. Pt transport home. Date Signed: 10/14/2017 04:26 PM Electronically Signed By:SUSAN Rodriguez Intervention Information
--- NOTE | 2017-10-14 16:27 | ASMTCMCOM ---
CM Note CM Note Notes: Pt medically stable for d/c with outpatient infusion at [facility] in [facility]. [place] priced pt home IV antibiotics and with this information pt decided on outpatient infusion. Pt called and scheduled Tuesday/Tuesday outpatient appointments prior to leaving [facility]. [facility] ID Dr. Foreman coordinated care with ID, pt scheduled to see Dr. Watt on Tuesday. Orders and clinicals faxed to the Dr. Watt's office. Pt transport home. Date Signed: 10/14/2017 04:26 PM Electronically Signed By:SUSAN Rodriguez
--- NOTE | 2017-10-14 17:37 | HOSPPROG ---
Hospitalist Progress Note Assessment/Plan: * Right ankle joint infection s/p I&D with spacer -MSSA/GBS - IV ceftriaxone for 6 weeks * RA -Humira on hold * COPD - 2L baseline - but sounds like only wears it intermittently -Symbicort * JOHN -CPAP intolerant * Obesity BMI 32 * CAD/stent -restart ASA * ARF -hold losartan as outpatient until renal function normalized Subjective: Discharging today per Dr. Pierre and Dr. Foreman - all care transferred to physicians in [place]. Patient anxious for discharge - no complaints. Objective: Vital Signs Temp Pulse Resp BP Pulse Ox 36.4 C 78 16 175/81 H 98 10/14/17 08:00 10/14/17 08:00 10/14/17 08:00 10/14/17 08:00 10/14/17 08:00 Microbiology 10/10/17 20:50 Gram Stain - Final Ankle - Eswab 10/10/17 20:50 Gram Stain - Final Ankle - Eswab Laboratory Results 10/11/17 09:30 10/14/17 05:20 10/13/17 10/14/17 10/15/17 05:59 05:59 05:59 Intake Total 1770 1250 300 Output Total 1989 1210 980 Balance -220 1600 -403 - Physical Exam Constitutional: no apparent distress, appears nourished, not in pain Cardiovascular: regular rate and rhythym, no murmur, rub, or gallop Respiratory: no respiratory distress, no rales or rhonchi, clear to auscultation Gastrointestinal: normoactive bowel sounds, soft, non-tender abdomen, no palpable masses Skin: no rashes or abrasions, no fluctuance, no induration Neurologic: AAOx3, sensation intact bilaterally Psychiatric: interacting appropriately, not anxious, not encephalopathic, thought process linear ICD10 Worksheet Patient Problems: Problems Problem Status Onset Arthritis of ankle, right Acute Arthritis of ankle, right Acute MDRO (multiple drug resistant organisms) resistance Acute
--- NOTE | 2017-10-21 10:53 | GDS ---
[f rep st] DISCHARGE SUMMARY ADMISSION DIAGNOSIS: Right ankle infection. DISCHARGE DIAGNOSIS: Right ankle infection. OPERATIONS PERFORMED WHILE IN THE HOSPITAL: Irrigation and debridement right ankle. CONSULTATIONS: Infectious Disease and Hospitalist Service. HISTORY RELATIVE TO ADMISSION: The patient is a 77-year-old with a prolonged history relative to his ankle. He had previously undergone debridement and biopsy specimens with a potential plan for a tot al ankle arthroplasty. The patient presented in [place] with infection in his ankle and was transfer red for management. HOSPITAL COURSE: The patient was taken to the operating room for irrigation, debridement, and placem ent of antibiotic spacer. Cultures were obtained. He is transferred to the regular med/surg floor i n stable condition. His hospital course was dependent upon the Infectious Disease doctors obtaining a specimen and planning for culture specific antibiotics. He was started on IV antibiotics. A PICC line was inserted and arrangements were made for home antibiotic. On 10/14, he is discharged home as he was in stable condition with appropriate home antibiotic management. Followup would be in 2 week s. DISPOSITION: Discharged home nonweightbearing on his operative extremity. Diet regular. Antibiotic s per the Infectious Disease team. /[id number]/MODL
--- NOTE | 2017-11-14 18:17 | GHP ---
[f rep st] PREOP HISTORY AND PHYSICAL DATE OF ADMISSION: 10/10/2017 CHIEF COMPLAINT: Right ankle. HISTORY OF PRESENT ILLNESS: Patient is a 77-year-old with an involved history relative to his right ankle. He had undergone attempted ankle arthrodesis previously, with development of a nonunion and i nfection. He was having continued ankle pain. More recently he had undergone operative debridement with a potential for total ankle arthroplasty. This was doing well, but then subsequently developed an infection which underwent an irrigation and debridement in September. He had been doing well following this, but over the past couple of days began developing redness and drainage, particularly on the pl manny aspect of his heel in the vicinity of his Steinmann pin sites. PAST MEDICAL HISTORY: Positive for rheumatoid arthritis, coronary artery disease, COPD, hearing loss , obstructive sleep apnea, asthma, reflux, restless legs syndrome, and hypertension. MEDICATIONS: Include Singulair, Paxil, trazodone, losartan, meloxicam, albuterol, Lipitor, Symbicort , Flonase, aspirin, gabapentin, [place], Senna, DuoNeb, vitamin D, calcium and ropinirole. SOCIAL HISTORY: Negative for current tobacco use. He quit 28 years ago. Drinking: Quit 22 years a go. PAST SURGICAL HISTORY: Positive for multiple ankle surgeries, knee replacement, and a TURP. ALLERGIES: No known drug allergies. FAMILY HISTORY: Noncontributory. PHYSICAL EXAMINATION: GENERAL: He is alert and oriented x3, in no acute distress. HEENT: Head is normocephalic. Pupils equal, round, reactive to light. Extraocular eye movements intact. NECK: Payne pple. No JVD or lymphadenopathy. CHEST: Clear to auscultation. HEART: Regular rate and rhythm. ABDOMEN: Soft, nontender, nondistended. GENITAL: Deferred. RECTAL: Deferred. BREASTS: Deferred. EXTREMITIES: Exam reveals redness with drainage on the plantar aspect of his heel over the locatio n of his pin sites. There is mild redness along the anterior aspect of his ankle. IMPRESSION: Left ankle infection. PLAN: The patient is scheduled to undergo irrigation, debridement, K-wire removal, possible external fixation. /[id number]/MODL
== END 2017-10-14 12:15 | disposition home or self-care (01) | DRG 858 ==
LOC: F3N 19:35
PROVIDERS: ADMIT Orthopaedic Surgery Foot and Ankle Surgery; ATTEND Orthopaedic Surgery Foot and Ankle Surgery
PROC: 0SHF08Z Insertion of Spacer into Right Ankle Joint, Open Approach (ICD-10-PCS; principal; 2017-10-10 17:00)
PROC: 0SS Lower Joints, Reposition (ICD-10-PCS; principal; 2017-10-10 17:00)
PROC: 0SP Lower Joints, Removal (ICD-10-PCS; principal; 2017-10-10 17:00)
PROC: 0SP Lower Joints, Removal (ICD-10-PCS; principal; 2017-10-10 17:00)
PROC: 02HV33Z Insertion of Infusion Device into Superior Vena Cava, Percutaneous Approach (ICD-10-PCS; 2017-10-13)
DX: T81.4XXA Infection following a procedure, initial encounter (principal); M06.9 Rheumatoid arthritis, unspecified; I25.10 Atherosclerotic heart disease of native coronary artery without angina pectoris; J44.9 Chronic obstructive pulmonary disease, unspecified; G47.33 Obstructive sleep apnea (adult) (pediatric); E66.9 Obesity, unspecified; I10 Essential (primary) hypertension; G25.81 Restless legs syndrome; N40.0 Benign prostatic hyperplasia without lower urinary tract symptoms; B95.61 Methicillin susceptible Staphylococcus aureus infection as the cause of diseases classified elsewhere; B95.1 Streptococcus, group B, as the cause of diseases classified elsewhere; Z68.32 Body mass index [BMI] 32.0-32.9, adult; Z87.891 Personal history of nicotine dependence; Z95.5 Presence of coronary angioplasty implant and graft
CPT/HCPCS: 97116-GP; 97161-GP; 97165-GO; 97530-GO; 97535-GO; C1713; C1751; G8978-GP-CI; G8978-GP-CK; G8979-GP-CI; G8980-GP-CI; G8987-GO-CK; G8988-GO-CI; J0690; J0696; J1100; J1650; J1885; J2270; J2370; J2704; J2780; J3010; J3370

== ENCOUNTER 2017-11-14 14:24 | Inpatient (IN) | payer OTHER ==
[2017-11-14] MEDS ORDERED: LR 1,000 ML IV ONE (15:07)
[2017-11-14] MEDS ORDERED: LIDOCAINE 1% 2 ML INJ ID PRN (15:07)
[2017-11-14] MEDS ORDERED: HYDROCODONE/APAP 5/325 TAB PO ONE (16:54)
[2017-11-14] MEDS ORDERED: HYDROCODONE/APAP 5/325 TAB ONE (16:57)
[2017-11-14] MEDS ORDERED: oxyCODONE IR 5 MG TAB PO PRN (17:47)
[2017-11-14] MEDS ORDERED: ACETAMINOPHEN 500 MG TAB PO PRN (17:47)
[2017-11-14] MEDS ORDERED: ALBUTEROL 3 ML DEYVIAL IH PRN (17:47)
[2017-11-14] MEDS ORDERED: NALOXONE HCL 0.4 MG/ML INJ IVP PRN (17:47)
[2017-11-14] MEDS ORDERED: DEXAMETHASONE 4 MG/ML VIAL IVP PRN (17:47)
[2017-11-14] MEDS ORDERED: ONDANSETRON 4 MG/2 ML VIAL IVP PRN (17:47)
[2017-11-14] MEDS ORDERED: HYDROmorphONE/DILAUDID 1 MG/ML INJ IVP PRN (17:47)
[2017-11-14] MEDS ORDERED: BUPIVACAINE 0.5% 30 ML SDV ONE (17:48)
--- NOTE | 2017-11-14 17:48 | PDANEPAE ---
ANE History of Present Illness R ankle I&D ANE Past Medical History - Cardiovascular History Hx Hypertension: Yes Hx Arrhythmias: No Hx Chest Pain: No Hx Coronary Artery / Peripheral Vascular Disease: Yes Hx CHF / Valvular Disease: No Hx Palpitations: No Cardiovascular History Comment: cad. stent 2002 - Pulmonary History Hx COPD: Yes Hx Asthma/Reactive Airway Disease: No Hx Recent Upper Respiratory Infection: No Hx Oxygen in Use at Home: Yes Hx Sleep Apnea: Yes Pulmonary History Comment: alayna positive uses cpap- instructed pt to bring cpap to hospital. hx of pna 2010 - Neurologic History Hx Cerebrovascular Accident: No Hx Seizures: No Hx Dementia: No Neurologic History Comment: restless leg syndrome - Endocrine History Hx Diabetes: No - Renal History Hx Renal Disorders: Yes Renal History Comment: bph. nocturia. hx of turp - Liver History Hx Hepatic Disorders: No - Neurological & Psychiatric Hx Hx Neurological and Psychiatric Disorders: No - Cancer History Hx Cancer: Yes Cancer History Comment: skin - Congenital Disorder History Hx Congenital Disorders: No - GI History Hx Gastrointestinal Disorders: Yes Gastrointestinal History Comment: gerd has been off medicines this past year- controlling with diet - Other Health History Other Health History: back pain. bilateral hearing aides. glasses. RA. red spots to right ankle - Chronic Pain History Chronic Pain: Yes (right ankle, back pain) - Surgical History Prior Surgeries: right ankle fusion x2 2016 with post MRSA infection. right TKA. bilateral cataracts. removal of cyst in left elbow. turp. t&a. right shoulder removal of cuff. removal of throat polyps ANE Review of Systems Review of Systems: ANE Patient History - Allergies Allergies/Adverse Reactions: No Known Allergies Allergy (Verified 08/31/17 11:02) - Home Medications Home Medications: Albuterol [Proventil Inhaler HFA (*)] 2 - 3 puffs IH TID PRN 09/13/17 [Last Taken 11/14/17 1300] Aspirin [Aspirin 81mg (*)] 81 mg PO BID 09/13/17 [Last Taken 11/13/17] Atorvastatin Calcium [Lipitor 20 mg (*)] 10 mg PO HS 09/13/17 [Last Taken ] Budesonide/Formoterol 160/4.5 [Symbicort 160-4.5 Mcg Inh (*)] 2 puffs IH BID [Last Taken 09/06/17] Fluticasone Nasal [Flonase Nasal [place]] 1 sprays NASAL BID PRN 09/13/17 [Last Taken 11/14/17] Meloxicam 7.5 mg PO DAILY 09/13/17 [Last Taken 11/13/17] Montelukast Sodium [Singulair 10 mg (*)] 10 mg PO HS 09/13/17 [Last Taken ] PARoxetine HCL [Paxil 20mg (*)] 10 mg PO DAILY 09/13/17 [Last Taken 11/13/17 t] rOPINIRole HCL [Ropinirole HCl] 0.5 mg PO HS 09/13/17 [Last Taken 11/13/17] traZODone [traZODONE 100MG (*)] 100 mg PO HS 09/13/17 [Last Taken 11/13/17] Calcium Carbonate [Oyster Shell Calcium 500 mg (*)] 500 mg PO BID 10/11/17 [ Last Taken 11/13/17] Cholecalciferol Vit D3 [Vitamin D3 (*)] 1,000 units PO BID 10/11/17 [Last Taken 11/13/17] Gabapentin [Neurontin 400 MG (*)] 1,200 mg PO BID 10/11/17 [Last Taken 11/13/17] Herbals/Supplements -Info Only 1 ea PO DAILY 10/11/17 [Last Taken 11/13/17] Hydrocodone/Acetaminophen [[place] 5/325 (*)] 1 each PO Q4 PRN 10/11/17 [Last Taken 11/13/17 21:00] Ipratropium/Albuterol [Duoneb (*)] 3 ml IH QID PRN 10/11/17 [Last Taken 11/14/17 ] Magnesium Oxide [Magnesium Oxide 400 mg (*)] 400 mg PO HS 10/11/17 [Last Taken 11/13/17] Multivitamins [Multivitamin (*)] 1 each PO DAILY 10/11/17 [Last Taken 11/13/17] Sennosides/Docusate Sodium [Senna-Docusate Sodium Tablet] 1 each PO BID PRN [Last Taken 10/15/17] Tamsulosin HCl [Flomax 0.4 MG (*)] 0.4 mg PO DAILY 10/11/17 [Last Taken 11/13/17 ] - NPO status NPO Since - Liquids (Date): 11/14/17 NPO Since - Liquids (Time): 06:30 NPO Since - Solids (Date): 11/13/17 NPO Since - Solids (Time): 21:00 - Smoking Hx Smoking Status: Former smoker - Family Anes Hx Family Hx Anesthesia Complications: none ANE Labs/Vital Signs - Vital Signs Blood Pressure: 135/68 Heart Rate: 73 Respiratory Rate: 14 O2 Sat (%): 3 Height: 170.18 cm Weight: 93.894 kg ANE Physical Exam - Airway Neck exam: FROM Mallampati Score: Class 2 Mouth exam: normal dental/mouth exam - Pulmonary Pulmonary: clear to auscultation - Cardiovascular Cardiovascular: regular rate and rhythym - ASA Status ASA Status: II ANE Anesthesia Plan Anesthesia Plan: GA w LMA
[2017-11-14] MEDS ORDERED: POLYMYXIN B SULFATE 500,000 UNIT/10 ML SYR IRR ONE (17:51)
[2017-11-14] MEDS ORDERED: PROPOFOL 200 MG/20 ML VIAL ONE (17:54)
[2017-11-14] MEDS ORDERED: fentaNYL 100 MCG/2 ML INJ ONE ×3 (17:54→19:34)
[2017-11-14] MEDS ORDERED: ceFAZolin 2 GM/DEXTROSE 100 ML IV ONE (17:59)
--- NOTE | 2017-11-14 17:59 | PDGENHP ---
History & Physical Chief Complaint: R ankle History of Present Illness: 77 y/o with recurrent ankle infection Pertinent Past, Social, Family History: SH - No tobacco x 28 yrs Relevant Physical Exam: R heel erythema, drainage Cardiorespiratory Assessment: Heart - RRR. Chest - clear
[2017-11-14] MEDS ORDERED: D5W 1/2 NS W/ 20 KCl/L 1,000 ML IV SCH (18:15)
[2017-11-14] MEDS ORDERED: ceFAZolin 1 GM VIAL ONE (18:34)
[2017-11-14] MEDS ORDERED: ONDANSETRON 4 MG/2 ML VIAL ONE (19:17)
[2017-11-14] MEDS: fentaNYL 100 MCG/2 ML INJ IVP PRN ×2 (19:41→20:10)
--- NOTE | 2017-11-14 19:46 | POSTOPPROG ---
Post Op Note Date of Operation: 11/14/17 Surgeon: Lisandro Pierre Anesthesia: GET(General Endotracheal) Pre-op Diagnosis: R ankle dislocation Post-op Diagnosis: same Procedure: HWR, I&D R ankle Inf/Abcess present in the surg proc area at time of surgery?: No Depth: Deep Incisional (Fascial)
[2017-11-14] MEDS ORDERED: oxyCODONE IR 5 MG TAB ONE (19:47)
--- NOTE | 2017-11-14 22:23 | GOP ---
[f rep st] OPERATIVE REPORT DATE OF OPERATION: 11/14/2017 SURGEON: Lisandro Pierre MD ANESTHESIA: General. PREOPERATIVE DIAGNOSIS: 1. Symptomatic calcaneal tibial pins. 2. Pin site infection, right heel. 3. Possible right ankle infection. 4. Retain methylmethacrylate implant, right ankle. POSTOPERATIVE DIAGNOSIS: 1. Symptomatic calcaneal tibial pins. 2. Pin site infection, right heel. 3. Possible right ankle infection. 4. Retain methylmethacrylate implant, right ankle. PROCEDURE PERFORMED: 1. Irrigation and debridement, right ankle, including skin, subcutaneous tissue, and bone. 2. Removal of Steinmann pins, right calcaneus. 3. Removal of methylmethacrylate spacer. FINDINGS: SPECIMENS: Cultures of the right ankle were sent for evaluation. ESTIMATED BLOOD LOSS: Blood loss minimal. INDICATIONS: The patient is a 77-year-old with very involved history with his right ankle. Most rec ently, he had undergone irrigation and debridement of the ankle with placement of methylmethacrylate spacer and spanning Steinmann pins. He was doing well, but recently began some increased drainage, p ain, redness at his Steinmann pin site in his heal. He was brought down from [place] for definitive management. The patient acknowledged he understood the potential risks, including but not limited to bleeding, in fection, neurovascular damage, loss of limb and function, persistence of infection, pain or limitatio ns despite operative treatment, and anesthetic risks. He acknowledged he understood the potential ri sks, planned procedure, and postoperative plan well, and had all questions answered prior to surgery. He gave his consent for the operative procedure. DESCRIPTION OF PROCEDURE: Patient was brought in the operating room after IV antibiotics were admini stered. He was placed in a supine position where general anesthetic was administered. A tourniquet was placed on his right thigh, bump underneath his right hip and shoulder, and his right lower extrem ity was prepped and draped in standard sterile fashion. Attention was initially directed toward the Steinmann pins on the heel. The pin insertion site, which was open at 1 of the pins and not open at the other, was utilized for access. The Steinmann pins were easily identified. Utilizing initially a needle roll off driver and subsequently [employer] and power, the pins were removed without difficulty. A fter Darrius wrap exsanguination, the tourniquet was inflated to 250. A portion of the previous anterior ankle incision was utilized for exposure, ellipsing out 1 area of compromised skin. Skin and subcut aneous tissues were sharply incised. The tibialis anterior was markedly adherent to the subcutaneous tissue and was freed with tenotomy scissors. Dissection was carried adjacent to the tibialis anteri or, avoiding neurovascular bundle. The "capsule" overlying the methylmethacrylate was freed both med ially and laterally. No overt infection was identified. Utilizing osteotome and rongeur, the methyl methacrylate spacer was taken out completely. The ankle was then copiously irrigated with 6 L of willy rile saline utilizing gravity irrigation with wide gauge cystoscopy tubing. The cultures of the ankl e were obtained prior to irrigation. It was felt that some stability needed to be given as well as f illing of space. It was not felt that replacing the Steinmann pins would be prudent based on hi s previous problem. While external fixation would be another option, there was similar concern with pin site problems. A new methylmethacrylate/tobramycin spacer was placed. It was felt that this wou ld provide enough provisional stability until definitive ankle arthrodesis would be performed. The s ubcutaneous tissue was closed with 3-0 Vicryl suture in interrupted fashion. Skin was closed with 3- 0 nylon interrupted vertical mattress sutures. The wounds were dressed with sterile Adaptic, 4 x 4, and Kerlix and Darrius wrap. The patient was taken to the recovery room, extubated in stable condition p ostoperatively. All sponge, needle, and instrument counts were reported as being correct. DRAINS: None. COMPLICATIONS: None. PLAN: The patient would be kept overnight for medical management and IV antibiotics. /[id number]/MODL
[2017-11-15] MEDS ORDERED: IPRATROPIUM/ALBUTEROL 3 ML DEYVIAL IH PRN (05:56)
[2017-11-15] MEDS ORDERED: ALBUTEROL 60 PUFFS/8 GM MDI IH PRN (05:56)
--- NOTE | 2017-11-15 06:01 | SOAPPROG ---
SOAP Progress Note Assessment/Plan: Assessment: Plan: 11/15/17 06:00 S/P I & D R ankle (pin site infection) Pain tolerable Jodee po +U/O Dressing intact Toes with good cap refill OOB D/C home today Objective: Vital Signs Temp Pulse Resp BP Pulse Ox 36.7 C 82 16 122/67 H 95 11/15/17 04:01 11/15/17 04:01 11/15/17 04:01 11/15/17 04:01 11/15/17 04:01 Microbiology 11/14/17 18:55 Gram Stain - Final Ankle - Eswab 11/14/17 11/15/17 11/16/17 05:59 05:59 05:59 Intake Total 1250 Output Total 900 Balance 350 ICD10 Worksheet Patient Problems: Problems Problem Status Onset Arthritis of ankle, right Acute Arthritis of ankle, right Acute MDRO (multiple drug resistant organisms) resistance Acute
[2017-11-15] MEDS ORDERED: MULTIVITAMINS 1 EACH TAB PO SCH (09:00)
[2017-11-15] MEDS ORDERED: MAGNESIUM OXIDE 400 MG TAB PO SCH (09:00)
[2017-11-15] MEDS ORDERED: TAMSULOSIN HCL 0.4 MG CAP PO SCH (09:00)
[2017-11-15] MEDS ORDERED: GABAPENTIN 400 MG CAP PO SCH (09:00)
[2017-11-15] MEDS ORDERED: ASPIRIN 81 MG CHEWABLE TAB PO SCH (09:00)
[2017-11-15] MEDS ORDERED: NON-FORMULARY NEW DRUG (Meloxicam [Meloxicam] 7.5 MG) PO SCH (09:00)
[2017-11-15] MEDS ORDERED: CHOLECALCIFEROL VIT D3 1,000 UNITS TAB PO SCH (09:00)
[2017-11-15] MEDS ORDERED: PARoxetine HCL 20 MG TAB PO SCH (09:00)
[2017-11-15] MEDS ORDERED: BUDESONIDE/FORMOTEROL 160/4.5 60 PUFFS/MDI IH SCH (09:00)
[2017-11-15] MEDS: CALCIUM CARBONATE 500 MG CHEWABLE TAB PO SCH ×2 (09:44→09:49)
--- NOTE | 2017-11-15 12:23 | PDMN ---
Medical Necessity Medical necessity: MCG: SGMS Musculoskeletal Surgery or Procedure GR77 y/o s/ p ankle I&D and hardware removal for recurrent infection. Pt w/ hx CAD, JOHN, usus CPAP, COPD.
[2017-11-15 15:30] VITALS: BP 144/62
--- NOTE | 2017-11-15 16:34 | ASMTCMCOM ---
CM Note CM Note Notes: Pt in for ankle infection. Pt [facility] for [facility] infection, d/c home with outpatient infusions at [facility] in [place], [place]. While there was a d/c order for pt today, pt did not "pass" PT who recommend SNF. CM to follow up with pt tomorrow. Date Signed: 11/15/2017 04:34 PM Electronically Signed By:SUSAN Rodriguez
[2017-11-15] MEDS ORDERED: ATORVASTATIN CALCIUM 20 MG TAB PO SCH (21:00)
[2017-11-15] MEDS ORDERED: MONTELUKAST SODIUM 10 MG TAB PO SCH (21:00)
[2017-11-15] MEDS ORDERED: traZODone 100 MG TAB PO SCH (21:00)
== END 2017-11-15 19:58 | disposition home or self-care (01) | DRG 497 ==
LOC: FSGY 14:24 → F3E 18:01 → F3N 20:56
PROVIDERS: ADMIT Orthopaedic Surgery Foot and Ankle Surgery; ATTEND Orthopaedic Surgery Foot and Ankle Surgery
PROC: 0SHF08Z Insertion of Spacer into Right Ankle Joint, Open Approach (ICD-10-PCS; principal; 2017-11-14 16:45)
PROC: 0SP Lower Joints, Removal (ICD-10-PCS; principal; 2017-11-14 16:45)
PROC: 0QPL04Z Removal of Internal Fixation Device from Right Tarsal, Open Approach (ICD-10-PCS; principal; 2017-11-14 16:45)
DX: T84.69XA Infection and inflammatory reaction due to internal fixation device of other site, initial encounter (principal); I10 Essential (primary) hypertension; I25.10 Atherosclerotic heart disease of native coronary artery without angina pectoris; G47.33 Obstructive sleep apnea (adult) (pediatric); G25.81 Restless legs syndrome; N40.1 Benign prostatic hyperplasia with lower urinary tract symptoms; K21.9 Gastro-esophageal reflux disease without esophagitis; Z86.14 Personal history of Methicillin resistant Staphylococcus aureus infection; Z95.5 Presence of coronary angioplasty implant and graft
CPT/HCPCS: 97116-GP; 97162-GP; C1713; G8978-GP-CK; G8979-GP-CI; J0690; J0696; J2405; J2704; J3010

== ENCOUNTER 2017-12-06 10:01 | Observation (INO) | payer OTHER ==
--- NOTE | 2017-12-05 17:43 | GHP ---
DATE OF ADMISSION: 12/06/2017 CHIEF COMPLAINT: Right ankle. HISTORY OF PRESENT ILLNESS: Patient is a 77-year-old with a very involved history relative to his ri ght ankle. He had undergone a previous ankle arthrodesis which went on to an infected nonunion. He subsequently underwent irrigation and debridement and cultures. While he did well initially, he deve loped an infection which required revision irrigation and debridements. He has undergone a course of IV antibiotics and is having continued pain in his ankle. PAST MEDICAL HISTORY: Positive for gastroesophageal reflux, rheumatoid arthritis, asthma, and sleep apnea. PAST SURGICAL HISTORY: Positive for multiple ankle surgeries. MEDICINES: Include atorvastatin, losartan, hydroxychloroquine, prednisone, and trazodone. ALLERGIES: He lists no drug allergies. SOCIAL HISTORY: Negative for current tobacco use. PHYSICAL EXAMINATION: GENERAL: He is alert and oriented x3, in no acute distress. HEENT: His head normocephalic. Pupils equal, round, reactive to light. Extraocular eye movements i ntact. NECK: Supple. No JVD or lymphadenopathy. CHEST: Clear to auscultation. HEART: Regular rate and rhythm. No murmurs or gallops. ABDOMEN: Soft, nontender, nondistended. No organomegaly. GENITALIA, RECTAL AND BREAST: Exams deferred. EXTREMITIES: Exam reveals a healed incisional scar about the anterior aspect of his ankle. There is mild swelling with no drainage or evidence of acute current infection. ASSESSMENT: Right ankle arthrosis. PLAN: The patient is scheduled to undergo revision ankle arthrodesis. The risks of continued infect ion which may necessitate an amputation were discussed in detail. /[id number]/MODL
[2017-12-06] MEDS ORDERED: LIDOCAINE 1% 2 ML INJ ID PRN (11:02)
[2017-12-06] MEDS ORDERED: LR 1,000 ML IV ONE ×2 (11:02→11:03)
[2017-12-06] MEDS ORDERED: MIDAZOLAM 2 MG/2 ML VIAL ONE (11:12)
[2017-12-06] MEDS ORDERED: fentaNYL 100 MCG/2 ML INJ ONE ×3 (11:12→16:57)
[2017-12-06] MEDS ORDERED: BUPIVACAINE 0.5% 30 ML SDV ONE (11:29)
--- NOTE | 2017-12-06 11:39 | PDANEPAE ---
ANE History of Present Illness chronic infection right ankle ANE Past Medical History - Cardiovascular History Hx Hypertension: Yes Hx Arrhythmias: No Hx Chest Pain: No Hx Coronary Artery / Peripheral Vascular Disease: Yes Hx CHF / Valvular Disease: No Hx Palpitations: No Cardiovascular History Comment: cad. stent 2002 - Pulmonary History Hx COPD: Yes Hx Asthma/Reactive Airway Disease: No Hx Recent Upper Respiratory Infection: No Hx Oxygen in Use at Home: Yes Hx Sleep Apnea: No Sleep Apnea Screening Result - Last Documented: Positive Pulmonary History Comment: JOHN positive uses Cpap- instructed pt to bring cpap to hospital but states they are on their way and they did not bring it. hx of pna 2010 - Neurologic History Hx Cerebrovascular Accident: No Hx Seizures: No Hx Dementia: No Neurologic History Comment: restless leg syndrome - Endocrine History Hx Diabetes: No - Renal History Hx Renal Disorders: Yes Renal History Comment: bph. nocturia. hx of turp - Liver History Hx Hepatic Disorders: No - Neurological & Psychiatric Hx Hx Neurological and Psychiatric Disorders: No - Cancer History Hx Cancer: Yes Cancer History Comment: skin - Congenital Disorder History Hx Congenital Disorders: No - GI History Hx Gastrointestinal Disorders: Yes Gastrointestinal History Comment: gerd has been off medicines this past year- controlling with diet - Other Health History Other Health History: back pain. bilateral hearing aides. glasses. RA. red spots to right ankle - Chronic Pain History Chronic Pain: Yes (right ankle, back pain) - Surgical History Prior Surgeries: Ankle surgeries x 3 since 08/2017, most recent 11/15/17 - had an I&D & hardware removal. right ankle fusion x2 2016 with post MRSA infection. right TKA. bilateral cataracts. removal of cyst in left elbow. turp. t&a. right shoulder removal of cuff. removal of throat polyps ANE Review of Systems Review of systems is: negative Review of Systems: - Exercise capacity METS (RN): 3 METS - Systems Respiratory: Reports: cough (chronic nonproductive) ANE Patient History - Allergies Allergies/Adverse Reactions: No Known Allergies Allergy (Verified 11/14/17 21:46) - Home Medications Home Medications: Albuterol [Proventil Inhaler HFA (*)] 2 - 3 puffs IH TID PRN 09/13/17 [Last Taken Unknown] Aspirin [Aspirin 81mg (*)] 81 mg PO BID 09/13/17 [Last Taken 11/13/17] Atorvastatin Calcium [Lipitor 20 mg (*)] 10 mg PO HS 09/13/17 [Last Taken ] Budesonide/Formoterol 160/4.5 [Symbicort 160-4.5 Mcg Inh (*)] 2 puffs IH BID [Last Taken 09/06/17] Fluticasone Nasal [Flonase Nasal Romance] 1 sprays NASAL BID PRN 09/13/17 [Last Taken 11/13/17] Meloxicam 7.5 mg PO DAILY 09/13/17 [Last Taken 11/13/17] Montelukast Sodium [Singulair 10 mg (*)] 10 mg PO HS 09/13/17 [Last Taken ] PARoxetine HCL [Paxil 20mg (*)] 10 mg PO DAILY 09/13/17 [Last Taken 11/13/17] rOPINIRole HCL [Ropinirole HCl] 0.5 mg PO HS 09/13/17 [Last Taken 11/13/17] traZODone [traZODONE 100MG (*)] 100 mg PO HS 09/13/17 [Last Taken 11/13/17] Cholecalciferol Vit D3 [Vitamin D3 (*)] 1,000 units PO BID 10/11/17 [Last Taken 11/13/17] Gabapentin [Neurontin 400 MG (*)] 400 mg PO BID 10/11/17 [Last Taken 11/13/17] Ipratropium/Albuterol [Duoneb (*)] 3 ml IH QID PRN 10/11/17 [Last Taken Unknown] Multivitamins [Multivitamin (*)] 1 each PO DAILY 10/11/17 [Last Taken 11/13/17] Tamsulosin HCl [Flomax 0.4 MG (*)] 0.4 mg PO DAILY 10/11/17 [Last Taken 11/13/17 ] Calcium Carbonate 600 mg PO BID 11/14/17 [Last Taken 11/13/17] Magnesium Oxide 750 mg PO HS 11/14/17 [Last Taken 11/13/17] - NPO status NPO Since - Liquids (Date): 12/06/17 NPO Since - Liquids (Time): 03:00 NPO Since - Solids (Date): 12/05/17 NPO Since - Solids (Time): 18:00 - Smoking Hx Smoking Status: Former smoker - Family Anes Hx Family Hx Anesthesia Complications: none ANE Labs/Vital Signs - Vital Signs Blood Pressure: 171/85 Heart Rate: 71 Respiratory Rate: 18 O2 Sat (%): 93 Height: 170.18 cm Weight: 94.348 kg ANE Physical Exam - Airway Mallampati Score: Class 1 Mouth exam: normal dental/mouth exam - Pulmonary Pulmonary: no respiratory distress - Cardiovascular Cardiovascular: regular rate and rhythym - ASA Status ASA Status: III (COPD, home O2, CAD, obesity) ANE Anesthesia Plan Regional Anesthesia: single shot NB
[2017-12-06] MEDS ORDERED: ceFAZolin 2 GM/DEXTROSE 100 ML IV ONE (14:19)
[2017-12-06] MEDS ORDERED: CEFAZOLIN 2 GM/DEXTROSE/100 ML BAG IV ONE (14:20)
[2017-12-06] MEDS ORDERED: PROPOFOL 200 MG/20 ML VIAL ONE ×3 (14:21→15:25)
[2017-12-06] MEDS: DAPTOmycin 500 MG in NS 100 ML IV SCH (14:40)
[2017-12-06] MEDS ORDERED: DEXAMETHASONE 4 MG/ML VIAL ONE (15:25)
[2017-12-06] MEDS ORDERED: ONDANSETRON 4 MG/2 ML VIAL ONE (15:25)
--- NOTE | 2017-12-06 17:23 | POSTANESTH ---
Post Anesthetic Evaluation Respiratory Status: Normal, Stable Level of Consciousness/Mental Status: Moderately Sleepy Pain Control: Adequate, Prn Tx Ordered Nausea/Vomiting Control: Adequate, Prn Tx Ordered Complications Possibly Related to Anesthesia: None Noted
[2017-12-06] MEDS ORDERED: PROMETHAZINE HCL 25 MG/ML INJ IVP PRN (17:24)
[2017-12-06] MEDS ORDERED: HYDROmorphONE/DILAUDID 2 MG/ML INJ IVP PRN (17:24)
[2017-12-06] MEDS ORDERED: PHENYLEPHRINE HCL 100 MCG/ML SYR IVP PRN (17:24)
[2017-12-06] MEDS ORDERED: NALOXONE HCL 0.4 MG/ML INJ IVP PRN (17:24)
[2017-12-06] MEDS ORDERED: LABETALOL HCL 5 MG/ML 20 ML MDV IVP PRN (17:24)
[2017-12-06] MEDS ORDERED: LR 500 ML IV PRN (17:24)
[2017-12-06] MEDS ORDERED: fentaNYL 100 MCG/2 ML INJ IVP PRN (17:24)
[2017-12-06] MEDS ORDERED: ALBUTEROL 3 ML DEYVIAL IH PRN (17:24)
[2017-12-06] MEDS ORDERED: LACTULOSE 20 GM/30 ML UDCUP PO PRN (17:28)
[2017-12-06] MEDS ORDERED: morphINE PCA 30 MG/30 ML PCA IV PRN (17:28)
[2017-12-06] MEDS ORDERED: BISACODYL 10 MG SUPP PR PRN (17:28)
[2017-12-06] MEDS ORDERED: ONDANSETRON 4 MG/2 ML VIAL IVP PRN (17:28)
[2017-12-06] MEDS ORDERED: POLYETHYLENE GLYCOL 3350 17 GM PKT PO PRN (17:28)
[2017-12-06] MEDS ORDERED: MAGNESIUM HYDROXIDE 30 ML UDCUP PO PRN (17:28)
--- NOTE | 2017-12-06 17:28 | POSTOPPROG ---
Post Op Note Date of Operation: 12/06/17 Surgeon: Lisandro Pierre Anesthesia: GET(General Endotracheal) Pre-op Diagnosis: Non union ankle arthrodesis, right Post-op Diagnosis: Same Procedure: Revision R ankle arthrodesis, Removal PMMA spacer Inf/Abcess present in the surg proc area at time of surgery?: No EBL: Minimal
[2017-12-06] MEDS ORDERED: D5W 1/2 NS W/ 20 KCl/L 1,000 ML IV SCH (17:30)
--- NOTE | 2017-12-06 21:34 | GOP ---
DATE OF OPERATION: 12/06/2017 SURGEON: Lisandro Pierre MD ANESTHESIA: General plus popliteal nerve block performed by the anesthesiologist at my request for post op pain management PREOPERATIVE DIAGNOSIS: 1. Nonunion, right ankle arthrodesis. 2. Retained methylmethacrylate implant spacer. POSTOPERATIVE DIAGNOSIS: 1. Nonunion, right ankle arthrodesis. 2. Retained methylmethacrylate implant spacer. PROCEDURE PERFORMED: 1. Revision right ankle arthrodesis. 2. Right fibular osteotomy. 3. Removal of methylmethacrylate spacer. 4. Irriagation and debridement right including skin and subcutaneous tissue and bone. FINDINGS: ESTIMATED BLOOD LOSS: Minimal. INDICATIONS: The patient is a 77-year-old, very involved history relative to his right ankle. He previously had undergone attempted arthrodesis which went on to an infected nonunion of the joint. The patient has undergone multiple recent debridements with continued pain. He is undergoing IV antibiotics. Clinically, there has been no evidence of infection. At this point in time revision of the arthrodesis was recommended. He acknowledges that if an infection is still present the ultimate result will be amputation. The patient also understood the potential risks, planned procedure, and postoperative plan well and all questions were answered prior to surgery. He gave consent for the operative procedure. DESCRIPTION OF PROCEDURE: The patient was brought to the operating room and after popliteal block was administered by the anesthesiologist in preop holding. The antibiotics were administered. He was placed in a supine position where general anesthetic was administered. A tourniquet was placed on his right thigh, bump underneath the right hip and shoulder, and his right lower extremity was prepped and draped in standard sterile fashion. After Darrius wrap exsanguination, tourniquet was inflated to 250. His previous anterior incision was utilized for exposure. A portion of unhealthy superficial skin was sharply ellipsed. Sharp dissection was carried adjacent to the tibialis anterior tendon in the interval between the tibialis anterior and EHL, down through the "capsule" exposing methylmethacrylate spacer. We used an osteotome to break this spacer. The spacer was then removed. There was no overt evidence of any infection in the joint. Using a curette, the bone surfaces were roughened back to fresh healthy bone. There was noted to be marked talar bone loss. Fusion would be more of a modified Javier-type arthrodesis which would leave the patient's foot short, but would hopefully allow for healing and maintenance of some motion. In order to allow for the fibular abutment not to occur, shortening fibular osteotomy was necessary. A longitudinal incision was made along the lateral border of the distal fibula. The fracture of the periosteum was performed anteriorly, taking down the syndesmosis. After protecting both the anterior and posterior aspects of the fibula with Hohmann retractors, a transverse osteotomy was performed. The fibula was windowed posteriorly and the medial cortex of the fibula was removed with a saw. Attention was directed towards tibiotalar fixation. The 3.5mm recon plate was contoured to fit the anterior-medial aspect of the talus and tibia. Fixation distally was accomplished with 3.5 mm cortical screws. There was slight protrusion of the distal aspect of the plate that would cross the talonavicular joint. It was felt necessary to allow for adequate fixation into the talus. The ankle was held in the neutral position and proximal fixation was accomplished with 3.5 mm cortical nonlocking and locking screws. The supplementation was performed at the anterior lateral plate with a 2.7 mm recon plate. Fixation distally into the talus was accomplished with two 2.7 mm cortical locking screws. Proximal fixation was then accomplished with 2.7 mm corticallocking screw in the proximal hole and 2 additional 2.7 mm locking screws. Fluoroscopic views confirmed stable arthrodesis position and hardware placement. Attention was then directed toward distal tib-fibular arthrodesis. the lateral soft tissue overlying the distal tibia was removed and the bone surface roughened. The fibula was secured into the tibia and talus with the 3.5 mm cortical screws in lag fashion. Flouroscopic views showed favorable fixation and position. Attention was directed toward closure. The deep tissue was closed with 2-0 Vicryl suture in interrupted fashion. Subcutaneous tissue closed with 3-0 Vicryl suture in interrupted fashion. Skin closed with 3-0 nylon interrupted vertical mattress sutures. The wounds were dressed with sterile Adaptic, 4 x 4 , and Webril, and leg was placed in below-knee splint. The patient tolerated the procedure well, was taken to the recovery room extubated in stable condition postoperatively. All sponge, needle, instrument counts reported as correct. DRAINS: None. COMPLICATIONS: None. POSTOPERATIVE PLAN: Patient will be admitted for overnight observation. He will continue his IV antibiotics. He will be nonweightbearing on his operative extremity. /[id number]/MODL MTDD
[2017-12-06] MEDS: SENNOSIDES/DOCUSATE SODIUM TAB PO SCH (22:40)
[2017-12-07] MEDS: oxyCODONE IR 5 MG TAB PO PRN ×2 (03:45→08:19)
[2017-12-07] MEDS ORDERED: FLUTICASONE NASAL 120 SPRAYS/16 GM MDI EACHNARE PRN (06:47)
[2017-12-07] MEDS ORDERED: ALBUTEROL 60 PUFFS/8 GM MDI IH PRN (06:47)
--- NOTE | 2017-12-07 06:51 | SOAPPROG ---
SOAP Progress Note Assessment/Plan: Assessment: S/P revision ankle arthrodesis Pain deuce deuce po + U/O Splint intact Mild sang D/C Toes with good cap refill Plan: D/C Home 12/07/17 06:50 Objective: Vital Signs Temp Pulse Resp BP Pulse Ox 36.4 C 80 16 160/90 H 94 12/07/17 03:35 12/07/17 03:35 12/07/17 03:35 12/07/17 03:35 12/07/17 03:35 12/06/17 12/07/17 12/08/17 05:59 05:59 05:59 Intake Total 1760 Output Total 1260 Balance 500 ICD10 Worksheet Patient Problems: Problems Problem Status Onset Arthritis of ankle, right Acute Arthritis of ankle, right Acute MDRO (multiple drug resistant organisms) resistance Acute
[2017-12-07 07:34] VITALS: BP 154/75
[2017-12-07] MEDS: DAPTOmycin 500 MG in NS 100 ML IV SCH (08:18)
[2017-12-07] MEDS: SENNOSIDES/DOCUSATE SODIUM TAB PO SCH (08:20)
[2017-12-07] MEDS ORDERED: ASPIRIN 81 MG CHEWABLE TAB PO SCH (09:00)
[2017-12-07] MEDS ORDERED: Meloxicam [Meloxicam] 7.5 MG PO SCH (09:00)
[2017-12-07] MEDS ORDERED: CALCIUM CARBONATE 500 MG TAB PO SCH (09:00)
[2017-12-07] MEDS ORDERED: PARoxetine HCL 10 MG TAB PO SCH (09:00)
[2017-12-07] MEDS ORDERED: TAMSULOSIN HCL 0.4 MG CAP PO SCH (09:00)
[2017-12-07] MEDS ORDERED: ENOXAPARIN 40 MG/0.4 ML SYR SC SCH (09:00)
[2017-12-07] MEDS ORDERED: MULTIVITAMINS 1 EACH TAB PO SCH (09:00)
[2017-12-07] MEDS ORDERED: GABAPENTIN 400 MG CAP PO SCH (09:00)
[2017-12-07] MEDS ORDERED: BUDESONIDE/FORMOTEROL 160/4.5 60 PUFFS/MDI IH SCH (09:00)
[2017-12-07] MEDS ORDERED: CHOLECALCIFEROL VIT D3 1,000 UNITS TAB PO SCH (09:00)
--- NOTE | 2017-12-07 14:39 | ASMTCMCOM ---
CM Note CM Note Notes: Pt back at [facility] for non-union ankle arthrodesis. PT rec again pt have ramp into home and PT spoke with pt grandson who will build one by the time pt gets home. Pt also did not bring his leg scooter and is advised to use only the scooter and no more crutches. Pt medically stable for d/c, pt and will drive back to [place], [place] today. No CM d/c needs identified. Date Signed: 12/07/2017 02:39 PM Electronically Signed By:SUSAN Rodriguez
--- NOTE | 2017-12-07 14:40 | ASMTLACE ---
LACE Length of stay for Answers: 2 days current admission Acuity / Level of Answers: Yes Care: Did the patient have an inpatient admission? Comorbidities - select Answers: Chronic pulmonary disease all that apply Coronary Artery Disease Opioid dependence / Chronic pain Other Notes: HTN; GERD # of Emergency department Answers: 0 visits in the last 6 months Score: 14 Date Signed: 12/07/2017 02:39 PM Electronically Signed By:SUSAN Rodriguez
[2017-12-07] MEDS ORDERED: ATORVASTATIN CALCIUM 20 MG TAB PO SCH (21:00)
[2017-12-07] MEDS ORDERED: MAGNESIUM OXIDE 400 MG TAB PO SCH (21:00)
[2017-12-07] MEDS ORDERED: traZODone 100 MG TAB PO SCH (21:00)
[2017-12-07] MEDS ORDERED: MONTELUKAST SODIUM 10 MG TAB PO SCH (21:00)
== END 2017-12-07 12:17 | disposition home or self-care (01) ==
LOC: INTOOBSV 10:01 → F3N 10:01
PROVIDERS: ADMIT Orthopaedic Surgery Foot and Ankle Surgery; ATTEND Orthopaedic Surgery Foot and Ankle Surgery
DX: M19.071 Primary osteoarthritis, right ankle and foot (principal); I10 Essential (primary) hypertension; I25.10 Atherosclerotic heart disease of native coronary artery without angina pectoris; Z95.5 Presence of coronary angioplasty implant and graft; J44.9 Chronic obstructive pulmonary disease, unspecified; G47.33 Obstructive sleep apnea (adult) (pediatric)
CPT/HCPCS: 27870; 27871; 97162; C1713; G8978; G8979; G8980; J0690; J0878; J1100; J1650; J2250; J2405; J2704; J3010